=== PATIENT | female | born 1990 | race Caucasian/White ===

== ENCOUNTER 2020-01-11 16:00 | Inpatient (IN) | payer OTHER ==
--- OUTSIDE RECORDS SUMMARY | 2020-01-11 16:50 | XMS ---
:1990 Author Organization [facility] Care Team Providers Name Role Phone MD Dustin Betancur Unavailable Unavailable MD Сергей Jones Unavailable Unavailable Gordon Fontana Unavailable Unavailable Holly Brito MD Unavailable Unavailable Mary Brito MD Unavailable Unavailable Mary Brito MD Unavailable Unavailable Mary Brito MD Unavailable Unavailable Tressa Carlton MD Unavailable Unavailable Tressa Carlton MD Unavailable Unavailable Tressa Carlton MD Unavailable Unavailable Tressa Carlton MD Unavailable Unavailable Tressa Carlton MD Unavailable Unavailable Tressa Carlton MD Unavailable Unavailable Other Unavailable Unavailable MD Fernando Unavailable Unavailable MD Fernando Unavailable Unavailable MD Fernando Unavailable Unavailable MD Fernando Unavailable Unavailable MD Fernando Unavailable Unavailable Re-disclosure Warning The records that you are about to access may contain information from federally- assisted alcohol or drug abuse programs. If such information is present, then the following federally mandated warning applies: This information has been disclosed to you from records protected by federal confidentiality rules (42 CFR part 2). The federal rules prohibit you from making any further disclosure of this information unless further disclosure is expressly permitted by the written consent of the person to whom it pertains or as otherwise permitted by 42 CFR part 2. A general authorization for the release of medical or other information is NOT sufficient for this purpose. The Federal rules restrict any use of the information to criminally investigate or prosecute any alcohol or drug abuse patient.The records that you are about to access may contain highly sensitive health information, the redisclosure of which is protected by Article 27-F of the [place] State Public Health law. If you continue you may haveaccess to information: Regarding HIV / AIDS; Provided by facilities licensed or operated by the [facility] Office of Mental Health; or Provided by the [facility] Office for People With Developmental Disabilities. If such information is present, then the following [facility] mandated warning applies: This information has been disclosed to you from confidential records which are protected by state law. State law prohibits you from making any further disclosure of this information without the specific written consent of the person to whom it pertains, or as otherwise permitted by law. Any unauthorized further disclosure in violation of state law may result in a fine or fdc sentence or both. A general authorization for the release of medical or other information is NOT sufficient authorization for further disclosure. Encounters Encounter Providers Location Date Indications Data Source(s ) Outpatient Attender: Gordon HUMPHREYMATTRJohn 01/11/2020 [facility] Te[facility]ee Figueroa 02:31:00 PM Hospital EDT Outpatient Attender: Doctor DANIELS 01/10/2020 STEVE Figueroa Other 12:18:05 PM Hospital EDT Outpatient Attender: MD Chan ICU-LABCLMisbah 01/03/2020 S - Kofi Figueroa PaliAttender: 12:04:58 PM Hospital Doctor Other EDT Outpatient Attender: MD Dustin HUMPHREYRADCLMisbah 12/20/2019 S - Kofi LazoiAttender: 11:41:03 AM Hospital Doctor Other EDT - 01/03/2020 11:59:00 PM EDT Patient discharged. Outpatient Attender: MD Chan ICUTeeteeOBRG 12/06/2019 11:17:50 S Teetee Gannontender: Doctor AM EDT - 12/20/2019 Hospital Other 11:59:00 PM EDT Patient discharged. Outpatient Attender: MD Dustin HUMPHREYOBRG 11/23/2019 11:10:31 ADDYS Teetee Aldrich: Doctor AM EDT - 12/06/2019 Hospital Other 11:59:00 PM EDT Patient discharged. Outpatient Attender: Gordon HUMPHREYOBRG 11/22/2019 10:51:03 M [facility] Teetee Mendozaender: Doctor AM EDT - 11/23/2019 Hospital Other 11:59:00 PM EDT Patient discharged. Emergency Attender: Carlos ICU-EMERG 11/08/2019 6 MONTHS PREG [facility] - Kofi Fernando MDAttender: 08:06:00 PM EDT - / CHIILS / R ochelle Doctor Other 11/08/2019 FEVER / ABD Hospital 11:04:00 PM EDT PAIN 6 MONTHS PREG / CHIILS / FEVER / ABD BAILEE N Patient discharged. Outpatient Attender: MD Rushing ICU-OBGYN 10/25/2019 S - Kofi HullelliAttender: Doctor 11:29:25 AM EDT - [place] Other 11/22/2019 Hospital 11:59:00 PM EDT Admission cancelled. Disregard status an d admitted date. Emergency Attender: Holly ICU-EMERG 10/21/2019 24 WKS [facility] - Misbah Brito MDAttender: 07:27:00 PM EDT - PREG/UPPER G I [place] Doctor Other 10/21/2019 PAIN Hospital 10:17:00 PM EDT 24 WKS PREG/UPPER GI PAIN Patient discharged. Outpatient Attender: Silke ICU-LABCLN 10/18/2019 02:57:42 [facility] - Kofi Carlton MDAttender: PM EDT - 10/25/2019 Hospital Doctor Other 11:59:00 PM EDT Patient discharged. Outpatient Attender: Silke ICU-LABCLN 09/25/2019 10:11:04 [facility] - Kofi Carlton MDAttender: AM EDT - 10/11/2019 Hospital Doctor Other 11:59:00 PM EDT Patient discharged. Medications Medication Brand Start Product Dose Route Administrative Pharm[facility] Indications Reaction Description Data Name Date Form Instructions Instructions Source(s) Diphenhydra Benadr K81302 active Benad ryl [facility] yl 2019 {cap( Health Hydrochlori mg 11:58: s)} System de 25 MG oral 22 AM Oral capsul EDT Capsule e [Benadryl] Benadryl 25 mg oral capsule Acetaminoph acetam X62822 active Aceta minophe [facility] en 325 MG inophe 2019 {tab( n Health Oral Tablet n 325 10:49: s)} Syste m acetaminoph mg 18 PM en 325 mg oral EDT oral tablet tablet This product contains acetaminophen. Do not use with any other product containing acetaminophen to prevent possible liver damage. [id number] 10/31/2019 1 Q20476 active [place] [facility] 03:31:45 PM {tab(s)} Health with Folic EDT System Acid 0.4 mg oral tablet [id number] 10/29/2019 1 K23273 active [place] [facility] 01:40:36 PM {tab(s)} Health with Folic EDT System Acid 0.4 mg oral tablet Insurance Providers Payer name Policy type / Policy ID Covered Covered Policy Plan Coverage type green party ID green party's Meraz Inform ation relationship to meraz MEDICAID [id number] SP [id number] MVP Medicaid Medicaid [id number] 1 [id number] Workers' Commercial [id number] Compensation Medicaid Medicaid [id number] 1 [id number] Medicaid Sohail Medicaid PCAP 1 PCAP Submitted DSS Emergency Medicaid [id number] Medicaid Self Pay Self Pay 1 Problems, Conditions, and Diagnoses Code Display Name Description Problem Type Effective Data Sour ce(s) Dates O26.613 Liver and biliary Intrahepatic Diagnosis 01/11/2020 [facility] - New tract disorders in cholestasis of 02:31:00 PM R ochelle , third in third EDT Hospital trimester trimester Z34.93 Encounter for Encounter for Diagnosis 01/10/2020 [facility] - Ne w supervision of supervision [facility] 11:44:[facility] H ospital unspecified, third in third trimester trimester Z3A.35 35 weeks gestation 35 weeks gestation Diagnosis 0 [facility] - New of of 12:00:00 AM [facility] Z34.90 Encounter for Diagnosis 01/10/2020 [facility] - New supervision of 12:00:00 AM [place] normal , EDT Hospita l unspecified, unspecified trimester Z3A.34 34 weeks gestation 34 weeks gestation Diagnosis 0 [facility] - New of of 10:50:00 AM [facility] Z3A.32 32 weeks gestation 32 weeks gestation Diagnosis 0 [facility] - New of of 12:00:00 AM [facility] Z3A.30 30 weeks gestation 30 weeks gestation Diagnosis 0 [facility] Z34.82 Encounter for Encounter for Diagnosis 11/23/2019 [facility] - Ne w supervision of supervision of 10:00:00 AM [facility] other normal normal EDT Hospit al , second in multigravida in trimester second trimester Z3A.28 28 weeks gestation 28 weeks gestation Diagnosis 0 [facility] - New of of 10:00:00 AM [place] EDT [facility] K80.20 Calculus of Calculus of Diagnosis 11/08/2019 [facility] - New gallbladder gallbladder 08:06:00 PM [place] without without EDT Hospital cholecystitis cholecystitis without without obstruction obstruction 6 MONTHS PREG / 6 MONTHS PREG / Diagnosis 11/08/2019 [facility] - New CHIILS / FEVER / CHIILS / FEVER / 08:06:00 PM [place] ABD PAIN ABD PAIN EDT Hospital Z33.1 state, Encounter for Diagnosis 10/25/2019 [facility] - New incidental incidental 10:07:00 AM [place] EDT [facility] 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 test without active tuberculosis Z34.92 Encounter for Encounter for Diagnosis 10/23/2019 [facility] - Ne w supervision of supervision [facility] 12:00:00 [facility] normal [facility] unspecified, unspecified, second trimester second trimester Z3A.22 22 weeks gestation 22 weeks gestation Diagnosis 0 [facility] - New [facility] 12:00:[facility] R10.9 Unspecified Abdominal pain Diagnosis 10/21/2019 [facility] - New abdominal pain 07:27:[facility] O26.892 Other specified Other specified Diagnosis 10/21/2019 [facility] - New related related 07:27:00 PM [place] conditions, second conditions in EDT Hos pital trimester second trimester Z03.818 Encounter for Encounter for Diagnosis 10/21/2019 [facility] - Ne w observation for observation for 07:27:00 PM Pola helle suspected exposure suspected exposure EDT Hospital to other to other biological agents biological agent, ruled out ruled out 24 WKS PREG/UPPER 24 WKS PREG/UPPER Diagnosis 10/21/2019 [facility] - New GI PAIN GI PAIN 07:27:00 PM [facility] Z3A.24 24 weeks gestation 24 weeks gestation Diagnosis 0 [facility] - New of of 07:27:00 PM [facility] Surgeries/Procedures Procedure Description Date Indications Data Source(s) US Obstetric Biophysical 01/09/2020 [facility] [employer] Profile US Obstetric 02:19:00 PM System Biophysical Profile EDT - 01/09/2020 02:19:00 PM EDT Bile Acids, Fractionated [facility]03[facility] 12:27:34 PM System EDT - 01/03/2020 12:51:00 PM EDT US Abdomen Limited US Abdomen 11/08/2019 [facility] 09:09:00 PM System EDT - 11/08/2019 09:09:00 PM EDT Electrocardiographic 11/08/2019 [facility] procedure (procedure) 08:19:04 PM System EDT - 11/08/2019 08:40:06 PM EDT Aerobic Culture, Urine 10/30/2019 [facility] 03:30:12 PM System EDT - 10/30/2019 03:38:24 PM EDT XR Chest Single PA view X[facility] Chest Single PA view 03:08:00 PM System EDT - 10/30/2019 03:08:00 PM EDT US OB Transvaginal US OB 10/21/2019 [facility] [employer] Transvaginal 07:55:00 PM System EDT - 10/21/2019 07:55:00 PM EDT Urine Test POCT 10/21/2019 [facility] 07:53:03 PM System EDT - 10/21/2019 08:51:42 PM EDT SMA Carrier Screen [facility] 03:15[facility]45 PM System EDT - 10/12/2019 03:10:00 PM EDT Cystic Fibrosis Screen 10/12/2019 [facility] 03:15:45 PM System EDT - 10/12/2019 03:10:00 PM EDT Lead, Serum Quantitative 10/12/2019 [facility] [employer] 03:15:45 PM System EDT - 10/12/2019 03:10:00 PM EDT US Obstetric Complete US 10/12/2019 [facility] Obstetric Complete 02:22:00 PM System EDT - 10/12/2019 02:22:00 PM EDT Results ID Date Data Source [id number] 01/10/2020 01:33:25 AM EDT [facility] Name Value Range Interpretation Code Description Data Shana rce(s) Supporting Document(s ) Lead.. < 1 Normal (applies to Lead.. [facility] non-numeric results) Health Sy stem ID Date Data Source [id number] 01/10/2020 01:33:25 AM EDT [facility] Name Value Range Interpretation Code Description Data Shana rce(s) Supporting Document(s ) RBC. 4.16 Normal (applies to RBC. [facility] {Mill/mcL} non-numeric Health System results) hemoglobi 12.4 g/dL Normal (applies to hemoglobin. [facility] n. non-numeric [facility] System results) Hematocri 36.4 % Normal (applies to Hematocrit. [facility] t. non-numeric Health System results) MCV. 87.4 fl Normal (applies to MCV. [facility] non-numeric [facility] System results) MCH. 29.9 pg Normal (applies to MCH. [facility] non-numeric [facility] System results) RDW. 13.0 % Normal (applies to RDW. [facility] non-numeric [facility] System results) Test Performed at:[facility] [place], [place] [address]Cornell Middleton M.D. HemoglobinA 96.3 Normal Hemoglobin A [facility] {Percent} (applies to Health non-numeric System results) HemoglobinS 0.0 Normal Hemoglobin S [facility] {Percent} (applies to Health non-numeric System results) HemoglobinC 0.0 Normal Hemoglobin C [facility] {Percent} (applies to Health non-numeric System results) HemoglobinElectrophoresisInterpre SEE Normal Hemogl obin [facility] tation NOTENormal (applies to Electrophoresis Health Pattern non-numeric Interpretation System results) HemoglobinA2 2.7 Normal Hemoglobin A2 [facility] {Percent} (applies to Health non-numeric System results) Hemoglobin F [Mass/volume] in < 1.0 Normal Hemoglobin , [facility] Blood by Electrophoresis (applies to Hea lth non-numeric System results) Hem.Variant 0.0 Normal Hem. Variant [facility] {Percent} (applies to Health non-numeric System results) Test Performed at:[facility] [place], [place] [address]ZarbgyrkCornell Middleton M.D. ID Date Data Source [id number] 01/10/2020 01:33:25 AM EDT [facility] Name Value Range Interpretation Description Data Sup porting Code Source(s) Document(s ) VaricellaResultVa 1.31 Normal (applies Varicella [facility] lue to non-numeric Result Value Health results) System VaricellaInterpre Positive Normal (applies Varicella [facility] tation <0.6 to non-numeric Interpretation Health results) System Negative> =0.6 - <.90 Equivocal >=.90 Positive ID Date Data Source [id number] 01/10/2020 01:33:25 AM EDT [facility] Name Value Range Interpretation Description Data Sup porting Code Source(s) Document(s ) Rubella 15 Normal (applies Rubella [facility] {IU/mL} to non-numeric Health results) System RubellaInterpreta Positive Normal (applies Rubella [facility] tion <5 to non-numeric Interpretation Health Negative> results) System =5 - <10 Equivocal >= 10 Positive ID Date Data Source [id number] 01/10/2020 01:33:25 AM EDT [facility] Name Value Range Interpretation Description Data Sup porting Code Source(s) Document(s ) aPTT in Blood 28.9 Normal (applies Activated [facility] by Coagulation {Seconds to non-numeric Partial Health assay } results) Thromboplastin System Time ID Date Data Source [id number] 01/10/2020 01:33:25 AM EDT [facility] Name Value Range Interpretation Description Data Sup porting Code Source(s) Document(s ) Prothrombintim 11.30 Normal (applies Prothrombin [facility] e(PT) {seconds to non-numeric time (PT) Health System } results) INR in Blood 1.00 Normal (applies INR Result [facility] by Coagulation {Ratio} to non-numeric Health Sys tem assay results) Normal = 0.7-1.1Therapeutic = 2.0-3.0Mec hanical Heart = 3.0-4.5 ID Date Data Source [id number] 01/10/2020 01:33:25 AM EDT Monico miller System Name Value Range Interpretation Description Data Sup porting Code Source(s) Document(s ) Leukocytes 7.6 Normal (applies WBC Count [facility] [#/volume] in {10^3_uL to non-numeric Health Unspecified } results) System specimen by Automated count Erythrocytes 4.16 Below low normal RBC Count [facility] [#/volume] in {10^6_uL Health Blood by } System Automated count Hematocrit 36.7 % Below low normal Hematocrit [facility] [Volume Health Fraction] of System Blood Hemoglobin 12.7 Normal (applies Hemoglobin [facility] [Mass/volume] in {gm/dL} to non-numeric Health Blood results) System Erythrocyte mean 88.2 fl Normal (applies MCV [facility] corpuscular to non-numeric Health volume [Entitic results) System volume] by Automated count Erythrocyte mean 30.5 pg Normal (applies MCH [facility] corpuscular to non-numeric Health hemoglobin results) System [Entitic mass] by Automated count Erythrocyte mean 34.6 Normal (applies MCHC [facility] corpuscular {gm/dL} to non-numeric Health hemoglobin results) System concentration [Mass/volume] by Automated count Erythrocyte 12.1 % Normal (applies RDW-CV [facility] distribution to non-numeric Health width [Entitic results) System volume] by Automated count Platelets 240 Normal (applies Platelet Count [facility] [#/volume] in {10^3_uL to non-numeric Health Plasma by } results) System Automated count Nucleated 0.0 Normal (applies NRBC % [facility] erythrocytes {/100_WB to non-numeric Health [#/volume] in C} results) System Body fluid Platelet mean 9.8 fl Normal (applies MPV [facility] volume [Entitic to non-numeric Health volume] in Blood results) System by Automated count Neutrophils/100 66.0 % Normal (applies Neutrophil % Thom alissa leukocytes in to non-numeric Health Blood by results) System Automated count NRBC# 0.00 Normal (applies NRBC # [facility] {10^3_uL to non-numeric Health } results) System Lymphocytes 26.6 % Normal (applies Lymphocyte % [facility] [#/volume] in to non-numeric Health Blood by results) System Automated count Neutrophils 5.1 Normal (applies Neutrophil # [facility] [#/volume] in {10^3_uL to non-numeric Health Body fluid } results) System Monocytes/100 6.0 % Normal (applies Monocyte % [facility] leukocytes in to non-numeric Health Blood results) System Lymphocyte 2.0 Normal (applies Lymphocyte # [facility] percent {10^3_uL to non-numeric Health differential } results) System count (procedure) Eosinophils/100 0.7 % Normal (applies Eosinophil % Thom alissa leukocytes in to non-numeric Health Unspecified results) System specimen Monocytes 0.5 Normal (applies Monocyte # [facility] [#/volume] in {10^3_uL to non-numeric Health Blood by Manual } results) System count Eosinophils 0.05 Normal (applies Eosinophil # [facility] [#/volume] in {10^3_uL to non-numeric Health Blood } results) System Basophils/100 0.4 % Normal (applies Basophil % [facility] leukocytes in to non-numeric Health Unspecified results) System specimen by Manual count Basophils 0.03 Normal (applies Basophil # [facility] [#/volume] in {10^3_uL to non-numeric Health Blood by } results) System Automated count ImmatureGranuloc 0.02 Normal (applies Immature [facility] ytes# {10^3_uL to non-numeric Granulocytes # Health } results) System ImmatureGranuloc 0.3 % Normal (applies Immature [facility] ytes% to non-numeric Granulocytes % Health results) System ID Date Data Source [id number] 01/10/2020 01:33:25 AM EDT [facility] Dmitri miller System Name Value Range Interpretation Description Data Sup porting Code Source(s) Document(s ) Human NONREACTIVE Normal (applies HIV test, [facility] immunodeficien Normal Range: to non-numeric Routine Health cy virus Non results) (antigen and System antibody titer ReactiveNegativ antibody measurement e for HIV-1 testing) (procedure) antigen and HIV-1/HIV-2 antibodies. No laboratory evidence of HIV infection.Test was performed at [address] ID Date Data Source [id number] 01/10/2020 01:33:25 AM EDT [facility] Name Value Range Interpretation Description Data Sup porting Code Source(s) Document(s ) HepatitisBSurf Non Normal (applies Hepatitis B [facility] aceAntigen. ReactiveReferen to non-numeric [facility] ce Range: Non results) Antigen. System Reactive HepatitisBSurf DNRTest Normal (applies Hepatitis B [facility] aceAntigenNeut Performed to non-numeric [facility] at:[facility] results) Antigen Neut [facility], [address] Middleton M.D. ID Date Data Source [id number] 01/10/2020 01:33:25 AM EDT [facility] Name Value Range Interpretation Description Data Sup porting Code Source(s) Document(s ) TechnicalResul see Normal (applies Technical [facility] ts noteNEGATIVE; to non-numeric Results Health AT LEAST TWO results) System COPIES OF THE SMN1 GENE DETECTED SMN1 2 copies Normal (applies SMN1 [facility] to non-numeric Health results) System SMN2 1 copy Normal (applies SMN2 [facility] to non-numeric Health results) System Interpretation SEE TEXT see Normal (applies Interpretati [facility] . noteThis to non-numeric on. Health analysis results) System identified at least two (2) copies of theSMN1 gene. This result does not rule out carrierstatus or a diagnosis of spinal muscular atrophy (SMA)*This testing cannot differentiate between individualswho have all copies of the SMN1 gene on one chromosomeand NONE on the opposite chromosome as well as othermutations in the SMN1 gene. The risk for mutationsthat cause SMA other than the deletions tested dependsgreatly on family history and clinical presentation.__ ! ! !Risk to be a carrier-------- --!---------!-- !---- ------!-------- --Ethnicity !Detection! Prior !2SMN1 copy!3SMN1 copy! rate !carrier risk! result ! result--------- -!---------!--- ---------!----- -----!--------- - ! 95% ! 1 in 35 ! 1 in 632 ! 1 in 3500 ! ---------!----- -------!------- ---! A shkenazi ! 90% ! 1 in 41 ! 1 in 350 ! 1 in 4000Jewish ! ! ! ! !--- ------!-------- ----! ! Rosie n ! 93% ! 1 in 53 ! 1 in 628 ! 1 in 5000 ! ---------!----- -------!------- ---! A frican ! 71% ! 1 in 66 ! 1 in 121 ! 1 in 3000American ! ! ! ! !--- ------!-------- ----! ! Jacky anic ! 91% ! 1 in 117 ! 1 in 1061!1 in 10493 !---------!---- --------!------ ----! Reviewer. SEE TEXT see Normal (applies Reviewer. Monico Thomson. to non-numeric Health Angelic results) System Maximino, Ph.D., FACMGDirector, Molecular GeneticsSpinal muscular atrophy (SMA) is a family of disordersthat are characterized by progressive muscularweaknes s due to loss of anterior horn cells. Adeletion of exon 7 in the SMN1 gene causes 95% of SMA.New mutations account for approximately 2% of SMA.SMN2 genes are able to produce a protein identical tothat of the SMN1 gene, but at a reduced (10-20%)capacit y. As a result the number of copies of WEI6siq been shown to influence the severity of thedisease. This assay detects the copy number of thetwo common genes (SMN1 and SMN2) recommended by theLincoln Hospitalan College of Medical Genetics (ACMG) forpopulation-b ased SMA carrier screening.Healt care providers, please contact your localI[facility]frontdesk genetic counselor or [place] ([phone]) for assistance withinterpretat ion of these results.The copy number of the SMA genes (SMN1 and SMN2) isdetected by quantitative PCR. Although rare, falsepositive or false negative results may occur. Allresults should be interpreted in context of clinicalfinding s, relevant history, and other laboratory data.This test was developed and its analyticalperfo rmance characteristics have been determinedby [facility] [place], [place].It has not been cleared or approved by the FDA. Thisassay has been validated pursuant to the CLIAregulations and is used for clinical purposes.This test was performed at:[facility] [place], [place] [address]Vgwr Performed at:[facility], [id number] [place] [address]Rfzivkfsuleiman Meneses M.D., Ph.D. ID Date Data Source [id number] 01/10/2020 01:33:25 AM EDT Monico miller System Name Value Range Interpretation Description Data Sup porting Code Source(s) Document(s ) Glucose 89 mg/dL Normal (applies to Glucose, Serum [facility] [Mass/volum non-numeric Health System e] in Serum results) or Plasma ID Date Data Source [id number] 01/10/2020 01:33:25 AM EDT [facility] Name Value Range Interpretation Description Data Source(s ) Supporting Code Document(s ) Reagin Ab Non-react Normal (applies to RPR. [facility] non-numeric Health System in Serum by results) RPR ID Date Data Source [id number] 01/10/2020 01:33:25 AM EDT [facility] Name Value Range Interpretation Description Data Sup porting Code Source(s) Document(s ) N.Gono Not Normal (applies N. Gonorrhea [facility] rrheab DetectedReference to non-numeric by [facility] yLCR Range: Not results) System DetectedThis test was performed using the APTIMA COMBO2(R) Assay(GENTrue FitPROBE(R)) .Test Performed at:[facility], [place], [place] [address]Charisma Benoit.Trac Not Normal (applies C. [facility] homati DetectedReference to non-numeric [facility] sAmp Range: Not Detected results) Amp System ID Date Data Source [id number] 01/10/2020 01:33:25 AM EDT [facility] Name Value Range Interpretation Description Data Sup porting Code Source(s) Document(s ) Color Yellow Normal (applies Color [facility] to non-numeric Health results) System Specific gravity 1.024 Normal (applies Urine Specific [facility] of Urine to non-numeric [place] [facility] results) System Appearance of HAZY Normal (applies Urine [facility] Urine to non-numeric Appearance Health results) System pH.. 5.0 Normal (applies pH.. [facility] {pH_unit to non-numeric Health s} results) System Glucose,UA NEG Normal (applies Glucose, UA [facility] to non-numeric Health results) System Protein NEG Normal (applies Protein [facility] [Mass/volume] in to non-numeric Health Serum or Plasma results) System BilirubinUrine NEG Normal (applies Bilirubin [facility] to non-numeric Urine Health results) System Urobilinogen < 2.0 Normal (applies Urobilinogen [facility] [Mass/volume] in to non-numeric UA Health Urine results) System Reference Range: Negative or <=2.0 Ketones NEG Normal (applies Ketones UA [facility] [Mass/volume] in to non-numeric Health S ystem Urine results) Nitrate+Nitrite Negative Normal (applies Nitrite [facility] [Mass/volume] in to non-numeric Health S ystem Unspecified results) specimen Leukocyte esterase Small Abnormal (applies Leukocyte Est erase [facility] [Units/volume] in to non-numeric Concentration [facility] Urine results) Leukocytes 11 {/HPF} Normal (applies White Blood Cells Thom alissa [#/volume] in to non-numeric Health Syst em Unspecified results) specimen by Automated count RedBloodCells 1 {/HPF} Normal (applies Red Blood Cells [facility] to non-numeric Health System results) Epithelial cells 6 {/HPF} Normal (applies Epithelial Cells [facility] [Presence] in to non-numeric Health Syst em Unspecified results) specimen by Wet preparation Mucus RARE Normal (applies Mucus [facility] to non-numeric Health System results) Bacteria [Presence] MOD Normal (applies Bacteria [facility] in Unspecified to non-numeric Health Sys tem specimen results) UrineBlood NEG Normal (applies Urine Blood [facility] to non-numeric Health System results) ID Date Data Source [id number] 01/10/2020 01:33:25 AM EDT [facility] Name Value Range Interpretation Description Data Sup porting Code Source(s) Document(s ) Deprecated Micro Normal (applies Aerobic [facility] Bacteria Result to non-numeric Culture, Urine Health identified in Final results) System Urine by Culture Aerobe Reading culture Note::< 10,000 CFU/ML ID Date Data Source [id number] 01/10/2020 01:33:25 AM EDT [facility] Name Value Range Interpretation Description Data Sup porting Code Source(s) Document(s ) SOURCE.. CERVIX Normal (applies SOURCE.. [facility] to non-numeric Health results) System LMP.. 02/22/17 Normal (applies LMP.. [facility] to non-numeric Health results) System CLINICALINFO Normal (applies CLINICAL [facility] RMATION. to non-numeric INFORMATION. Health results) System ReportStatus FINAL Normal (applies Report Status [facility] to non-numeric Health results) System PRE.PAP NA Normal (applies PRE.PAP [facility] to non-numeric Health results) System PREV.BX NA Normal (applies PREV.BX [facility] to non-numeric Health results) System GENERALCATEG DNR Normal (applies GENERAL [facility] ORIZATION to non-numeric CATEGORIZATION Health results) System STATEMENTOFA SEE Normal (applies STATEMENT OF [facility] DEQUACY NOTESatisfac to non-numeric ADEQUACY Health tory for results) System evaluation.E ndocervical/ transformati on zone componentpre sent.Age and/or menstrual status not provided INTERPRETATI SEE Normal (applies INTERPRETATION/RE [facility] ON/RESULT1 NOTENegative to non-numeric SULT 1 Health for results) System intraepithel ial lesion or malignancy. INTERPRETATI DNR Normal (applies INTERPRETATION/RE [facility] ON/RESULT2 to non-numeric SULT 2 Health results) System COMMENTCYTO DNR Normal (applies COMMENT CYTO [facility] to non-numeric Health results) System CYTOTECHNOLO SEE NOTESMS, Normal (applies STEAMTABLE WORKER M [facility] GIST CT(ASCP)CT to non-numeric Health screening results) System location: [place] [address] REVIEWCYTOTE DNR Normal (applies REVIEW [facility] CHNOLOGIST to non-numeric STEAMTABLE WORKER Health results) System PATHOLOGIST. DNR Normal (applies PATHOLOGIST. [facility] to non-numeric Health results) System ID Date Data Source [id number] 01/10/2020 01:33:25 AM EDT [facility] Name Value Range Interpretation Description Data Source(s ) Supporting Code Document(s ) SOURCE.. CERVIX Normal (applies to SOURCE.. [facility] non-numeric Health System results) LMP.. 02/22/17 Normal (applies to LMP.. [facility] non-numeric Health System results) PRE.PAP NA Normal (applies to PRE.PAP [facility] non-numeric Health System results) CLINICAL Normal (applies to CLINICAL [facility] INFORMAT non-numeric INFORMATION. Health System ION. results) PREV.BX NA Normal (applies to PREV.BX [facility] non-numeric Health System results) ID Date Data Source [id number] 01/10/2020 01:33:25 AM EDT [facility] Name Value Range Interpretation Description Data Sup porting Code Source(s) Document(s ) Interpretation-MAT SEE Normal (applies Interpretati [facility] 4 NOTEScreen to non-numeric on- MAT4 Health negative results) System for open NTD, Down syndrome and Trisomy 18. ONTDRisk < 1:5000 Normal (applies ONTD Risk [facility] to non-numeric Health results) System DownRiskAge 1:865 Normal (applies Down Risk [facility] to non-numeric Age Health results) System DownRisk 1:2000 Normal (applies Down Risk [facility] to non-numeric Health results) System Vzzymgj17Dtxi 1:2741 Normal (applies Trisomy 18 [facility] to non-numeric Risk Health results) System Jrirr-8-Qbuzqwxxvo 35.00 ng/mL Normal (applies Alpha [facility] n [Moles/volume] to non-numeric Fetoprotein, Healt h in Serum or Plasma results) Serum System AlphaFetoproteinMo DNR Normal (applies Alpha Thom alissa M to non-numeric Fetoprotein Health results) MoM System AFPMoM,1Fetus 0.72 Normal (applies AFP MoM, 1 [facility] to non-numeric Fetus Health results) System AFPMoM,1Fetus/Diab DNR Normal (applies AFP MoM, 1 [facility] etic to non-numeric Fetus/Diabet Health results) ic System AFPMoM,2Fetuses DNR Normal (applies AFP MoM, 2 [facility] to non-numeric Fetuses Health results) System AFPMoM,3Fetuses DNR Normal (applies AFP MoM, 3 [facility] to non-numeric Fetuses Health results) System AFPMoM,2Fetus/Diab DNR Normal (applies AFP MoM, 2 [facility] etic to non-numeric Fetus/Diabet Health results) ic System AFPMoM,3Fetus/Diab DNR Normal (applies AFP MoM, 3 [facility] etic to non-numeric Fetus/Diabet Health results) ic System hCG... 18.30 Normal (applies hCG... [facility] {IU/mL} to non-numeric Health results) System hCGMom 0.78 Normal (applies hCG Mom [facility] to non-numeric Health results) System GestationalAge 18.7 Normal (applies Gestational [facility] {Weeks} to non-numeric Age Health results) System uE3MoM 0.55 Normal (applies uE3 MoM [facility] to non-numeric Health results) System InhibinAMom 0.87 Normal (applies Inhibin A [facility] to non-numeric Mom Health results) System Performance of maternal serum AFP, hCG, estriol, and dimeric Inhibin A provides a useful screening test for detection of o pen neural tube defects and some chromosomal abnormalities. It should be noted that n ormal results never guarantee the of a normal baby and that 2 to 3 percent of n ewborns have some type of physical or mental defect, many of which are undetectable t hrough any known diagnostic technique. Comment-MAT4 SEE NOTEPerformance of Normal Comment- MAT4 [facility] maternal serum AFP, hCG, (applies to [facility] System estriol, and dimeric non-numeric Inhibin A provides a useful results) screening test for detection of open neural tube defects and some chromosomal abnormalities. It should be noted that normal results can never guarantee the of a normal baby and that 2 to 3 percent of newborns havesome type of physical or mental defect, many of which are undetectable through any known diagnostic technique. DatingMeth Last Menstrual Period Normal Dating Meth Thom alissa (applies to Health System non-numeric results) Race Normal Race [facility] (applies to Health System non-numeric results) Weight. 138 {lbs} Normal Weight. [facility] (applies to Health System non-numeric results) Diabetic No Normal Diabetic [facility] (applies to Health System non-numeric results) InhibinA 143 pg/mL Normal Inhibin A [facility] (applies to Health System non-numeric results) González 11/30/2017 Normal González [facility] (applies to Health System non-numeric results) RepeatForNtd No Normal Repeat For Ntd [facility] (applies to Health System non-numeric results) Fetuses 1 Normal Fetuses [facility] (applies to Health System non-numeric results) NtdFamHis No Normal Ntd Fam His [facility] (applies to Health System non-numeric results) uE3 0.85 ng/mL Normal uE3 [facility] (applies to Health System non-numeric results) Mat. 1989 This is a Normal Mat. [facility] screening test, not a (applies to Health System diagnostic test. Noreagent non-numeric system establishing the results) risk of chromosomeabnormalities during has been approved by theFDA. This risk assessment report is based in part ondemographic data provided by the ordering physician.It has been observed that patients who smoke cigarettesduring may have a slightly increased risk ofhaving a false positive SHIRIN screen for Down syndrome ortrisomy 18. Please notify the laboratory promptly if anydata are incorrect. For assistance with recalculations,please call your local [facility] laboratory. Forassistance with interpretation of these results, pleasecontact your local [facility] genetic counseloror call [phone]).Th is is a screening test, not a diagnostic. No reagent system establishing the risk of chromosome abnormalities during has been approved by the FDA. This risk assessment report is based in part on demographic data provided by the ordering physician. Please notify the laboratory promptly if any data is incorrect. For assistance with recalcualtions, please call . For assistance with interpretation of these results, please contact our genetic counselor at [phone] or call [phone]. Requisition DNR Normal Requisition [facility] (applies to Health System non-numeric results) ID Date Data Source [id number] 01/10/2020 01:33:25 AM EDT [facility] System Name Value Range Interpretation Description Data Sup porting Code Source(s) Document(s ) Quanti PositiveIn healthy Abnormal Quantiferon-T [facility] feron- persons who have a (applies to [employer] TBGold low likelihood both non-numeric System . ofM. tuberculosis results) infection and of progression to activetuberculosis if infected, a single positive QFT resultshould not be taken as reliable evidence of M. tuberculosisinfectio n. Repeat testing, with either the initial test ora different test, may be considered on a qeql-nw-znrl basis. NIL 0.12 {IU/mL} Normal (applies NIL [facility] to non-numeric Health results) System TBAG-N > 10.00 Normal (applies TB AG-NIL [facility] [place] to non-numeric Health results) System Mitoge > 10.00 Normal (applies Mitogen-NIL [facility] n-NIL to non-numeric Health results) System The Nil tube value is used to determine if the patient has apreexisting immune response which could cause a false-posit parish reading on the test.In order for a test to be valid, the Nil tube must have aval ue of <=8.0 IU/mL.The mitogen control tube is used to assure the patient hasa healthy immune status and also serves as a control forcorrect blood handling and incubation . It is used to detectfalse-negative readings. The mitogen tube must have a g ammainterferon value >=0.5 IU/mL higher than the value of the Niltube.The TB Antigen tube is coated with the M. tuberculosisspecific antigens. For a te st to be considered positive,the TB antigen tube value minus the Nil tube value must be>=0.35 IU/mL.For additional information, please refer [email or web address].[employer]pp[employer]ino/faq/QFT(This link is being provided for informational/educationalpu rposes only.)Test Performed at:[facility], [place], [place] [address]Zqjfnawvdavid Middleton M.D. ID Date Data Source [id number] 01/10/2020 01:33:25 AM EDT [facility] Name Value Range Interpretation Description Data Source(s ) Supporting Code Document(s ) 1HrGlucos 96 {gm/dL} Normal (applies to 1 Hr Glucose [facility] e non-numeric Health System results) Normal <130Borderline 130-140A bnormal >140 ID Date Data Source [id number] 01/10/2020 01:33:25 AM EDT [facility] Name Value Range Interpretation Description Data Sup porting Code Source(s) Document(s ) Leukocytes 8.4 Normal (applies WBC Count [facility] [#/volume] in {10^3_uL to non-numeric Health Unspecified } results) System specimen by Automated count Hemoglobin 11.9 Below low normal Hemoglobin [facility] [Mass/volume] in {gm/dL} Health Blood System Erythrocytes 3.83 Below low normal RBC Count [facility] [#/volume] in {10^6_uL Health Blood by } System Automated count Hematocrit 34.8 % Below low normal Hematocrit [facility] [Volume Health Fraction] of System Blood Erythrocyte mean 90.9 fl Normal (applies MCV [facility] corpuscular to non-numeric Health volume [Entitic results) System volume] by Automated count Erythrocyte mean 31.1 pg Above high MCH [facility] corpuscular normal Health hemoglobin System [Entitic mass] by Automated count Erythrocyte mean 34.2 Normal (applies MCHC [facility] corpuscular {gm/dL} to non-numeric Health hemoglobin results) System concentration [Mass/volume] by Automated count Erythrocyte 12.7 % Normal (applies RDW-CV [facility] distribution to non-numeric Health width [Entitic results) System volume] by Automated count Platelets 256 Normal (applies Platelet Count [facility] [#/volume] in {10^3_uL to non-numeric Health Plasma by } results) System Automated count Nucleated 0.0 Normal (applies NRBC % [facility] erythrocytes {/100_WB to non-numeric Health [#/volume] in C} results) System Body fluid Platelet mean 9.7 fl Normal (applies MPV [facility] volume [Entitic to non-numeric Health volume] in Blood results) System by Automated count Neutrophils/100 66.1 % Normal (applies Neutrophil % Thom alissa leukocytes in to non-numeric Health Blood by results) System Automated count NRBC# 0.00 Normal (applies NRBC # [facility] {10^3_uL to non-numeric Health } results) System Neutrophils 5.6 Normal (applies Neutrophil # [facility] [#/volume] in {10^3_uL to non-numeric Health Body fluid } results) System Lymphocyte 1.9 Normal (applies Lymphocyte # [facility] percent {10^3_uL to non-numeric Health differential } results) System count (procedure) Lymphocytes 22.5 % Normal (applies Lymphocyte % [facility] [#/volume] in to non-numeric Health Blood by results) System Automated count Monocytes/100 9.5 % Above high Monocyte % [facility] leukocytes in normal Health Blood System Monocytes 0.8 Normal (applies Monocyte # [facility] [#/volume] in {10^3_uL to non-numeric Health Blood by Manual } results) System count Eosinophils/100 1.0 % Normal (applies Eosinophil % Thom alissa leukocytes in to non-numeric Health Unspecified results) System specimen Eosinophils 0.08 Normal (applies Eosinophil # [facility] [#/volume] in {10^3_uL to non-numeric Health Blood } results) System Basophils/100 0.2 % Normal (applies Basophil % [facility] leukocytes in to non-numeric Health Unspecified results) System specimen by Manual count Basophils 0.02 Normal (applies Basophil # [facility] [#/volume] in {10^3_uL to non-numeric Health Blood by } results) System Automated count ImmatureGranuloc 0.06 Normal (applies Immature [facility] ytes# {10^3_uL to non-numeric Granulocytes # Health } results) System ImmatureGranuloc 0.7 % Normal (applies Immature [facility] ytes% to non-numeric Granulocytes % Health results) System ID Date Data Source [id number] 01/10/2020 01:33:25 AM EDT [facility] alth System Name Value Range Interpretation Description Data Sup porting Code Source(s) Document(s ) Human NONREACTIVE Normal (applies HIV test, [facility] immunodeficien Normal Range: to non-numeric Routine Health cy virus Non results) (antigen and System antibody titer ReactiveNegativ antibody measurement e for HIV-1 testing) (procedure) antigen and HIV-1/HIV-2 antibodies. No laboratory evidence of HIV infection.Test was performed at [address] ID Date Data Source [id number] 01/10/2020 01:33:25 AM EDT [facility] alth System Name Value Range Interpretation Description Data Source(s ) Supporting Code Document(s ) Reagin Ab Non-react Normal (applies to RPR. [facility] [Presence] parish non-numeric Health System in Serum by results) RPR ID Date Data Source [id number] 01/10/2020 01:33:25 AM EDT [facility] al[facility] System Name Value Range Interpretation Description Data Sup porting Code Source(s) Document(s ) C.Trac Not Normal (applies C. [facility] homati DetectedReference to non-numeric [facility]alt [facility] sAmp Range: Not Detected results) Amp System N.Gono Not Normal (applies N. Gonorrhea [facility] rrheab DetectedReference to non-numeric by LCR Health yLCR Range: Not results) System DetectedThis test was performed using the APTIMA COMBO2(R) Assay(GEN-PROBE(R)) .Test Performed at:[facility], [place] [id number] Middleton M.D. ID Date Data Source [id number] 01/10/2020 01:33:25 AM EDT [facility] al[facility] System Name Value Range Interpretation Description Data Sup porting Code Source(s) Document(s ) Streptococcus Micro Result Normal (applies Culture [facility] agalactiae Final to non-numeric Screen, Strep Health [Presence] in Culture results) Group B System Cervix by Reading Organism Note::NEGATI specific VE FOR BETA culture HEMOLYTIC STREPTOCCI GROUP B ID Date Data Source [id number] 01/10/2020 01:33:25 AM EDT [facility] Name Value Range Interpretation Description Data Sup porting Code Source(s) Document(s ) pH 7.360 Normal (applies pH [facility] {pH_unit to non-numeric Health System s} results) Carbon dioxide 41.4 Normal (applies pCO2, Arterial [facility] [Partial {mm_Hg} to non-numeric Health System pressure] in results) Arterial blood Bicarbonate 22.8 Normal (applies HCO3 [facility] [Moles/volume] mmol/L to non-numeric Health Sys tem in Venous results) blood BaseExcess. -1.9 Normal (applies Base Excess. [facility] mmol/L to non-numeric Health System results) ID Date Data Source [id number] 01/10/2020 01:33:25 AM EDT [facility] System Name Value Range Interpretation Description Data Sup porting Code Source(s) Document(s ) pH 7.305 Below low normal pH [facility] {pH_unit Health System s} Carbon dioxide 51.1 Above high normal pCO2, Arterial [facility] [Partial {mm_Hg} Health System pressure] in Arterial blood Bicarbonate 24.7 Normal (applies HCO3 [facility] [Moles/volume] mmol/L to non-numeric Health Sys tem in Venous results) blood BaseExcess. -0.8 Normal (applies Base Excess. [facility] mmol/L to non-numeric Health System results) ID Date Data Source [id number] 01/10/2020 01:33:25 AM EDT [facility] System Name Value Range Interpretation Description Data Sup porting Code Source(s) Document(s ) Type O Normal (applies Type [facility] to non-numeric Health results) System AntibodyScreen Negative Normal (applies Antibody [facility] to non-numeric Screen Health results) System D Ab [Titer] in Positive Normal (applies Rh [facility] Serum or Plasma to non-numeric Health results) System ID Date Data Source [id number] 01/10/2020 01:33:25 AM EDT [facility] System Name Value Range Interpretation Description Data Sup porting Code Source(s) Document(s ) Color Yellow Normal (applies Color [facility] to non-numeric Health results) System Appearance of HAZY Normal (applies Urine [facility] Urine to non-numeric Appearance Health results) System Specific gravity 1.009 Normal (applies Urine Specific [facility] of Urine to non-numeric [place] [facility] results) System pH.. 7.0 Normal (applies pH.. [facility] {pH_unit to non-numeric Health s} results) System Glucose,UA NEG Normal (applies Glucose, UA [facility] to non-numeric Health results) System BilirubinUrine NEG Normal (applies Bilirubin [facility] to non-numeric Urine Health results) System Protein NEG Normal (applies Protein [facility] [Mass/volume] in to non-numeric Health Serum or Plasma results) System Urobilinogen < 2.0 Normal (applies Urobilinogen [facility] [Mass/volume] in to non-numeric UA Health Urine results) System Reference Range: Negative or <=2.0 Ketones NEG Normal (applies Ketones UA [facility] [Mass/volume] in to non-numeric Health S ystem Urine results) Nitrate+Nitrite Negative Normal (applies Nitrite [facility] [Mass/volume] in to non-numeric Health S ystem Unspecified results) specimen Leukocytes 20 {/HPF} Normal (applies White Blood Cells Thom alissa [#/volume] in to non-numeric Health Syst em Unspecified results) specimen by Automated count Leukocyte esterase Moderate Abnormal (applies Leukocyte Est erase [facility] [Units/volume] in to non-numeric Concentration Hea lth System Urine results) RedBloodCells 1 {/HPF} Normal (applies Red Blood Cells [facility] to non-numeric Health System results) Epithelial cells 5 {/HPF} Normal (applies Epithelial Cells [facility] [Presence] in to non-numeric Health Syst em Unspecified results) specimen by Wet preparation Bacteria [Presence] FEW Normal (applies Bacteria [facility] in Unspecified to non-numeric Health Sys tem specimen results) UrineBlood NEG Normal (applies Urine Blood [facility] to non-numeric Health System results) ID Date Data Source [id number] 01/10/2020 01:33:25 AM EDT [facility] System Name Value Range Interpretation Description Data Sup porting Code Source(s) Document(s ) aPTT in Blood 27.9 Normal (applies Activated [facility] by Coagulation {Seconds to non-numeric Partial Health assay } results) Thromboplastin System Time ID Date Data Source [id number] 01/10/2020 01:33:25 AM EDT [facility] System Name Value Range Interpretation Description Data Sup porting Code Source(s) Document(s ) Prothrombintim 10.20 Normal (applies Prothrombin [facility] e(PT) {seconds to non-numeric time (PT) Health System } results) INR in Blood 0.89 Normal (applies INR Result [facility] by Coagulation {Ratio} to non-numeric Health Sys tem assay results) Normal = 0.7-1.1Therapeutic = 2.0-3.0Mec hanical Heart = 3.0-4.5 ID Date Data Source [id number] 01/10/2020 01:33:25 AM EDT [facility] System Name Value Range Interpretation Description Data Sup porting Code Source(s) Document(s ) Leukocytes 9.1 Normal (applies WBC Count [facility] [#/volume] in {10^3_uL to non-numeric Health Unspecified } results) System specimen by Automated count Erythrocytes 4.13 Below low normal RBC Count [facility] [#/volume] in {10^6_uL Health Blood by } System Automated count Hemoglobin 12.8 Normal (applies Hemoglobin [facility] [Mass/volume] in {gm/dL} to non-numeric Health Blood results) System Hematocrit 38.4 % Normal (applies Hematocrit [facility] [Volume to non-numeric Health Fraction] of results) System Blood Erythrocyte mean 93.0 fl Normal (applies MCV [facility] corpuscular to non-numeric Health volume [Entitic results) System volume] by Automated count Erythrocyte mean 31.0 pg Normal (applies MCH [facility] ore corpuscular to non-numeric Health hemoglobin results) System [Entitic mass] by Automated count Erythrocyte mean 33.3 Normal (applies MCHC [facility] corpuscular {gm/dL} to non-numeric Health hemoglobin results) System concentration [Mass/volume] by Automated count Erythrocyte 13.2 % Normal (applies RDW-CV [facility] distribution to non-numeric Health width [Entitic results) System volume] by Automated count Platelets 254 Normal (applies Platelet Count [facility] [#/volume] in {10^3_uL to non-numeric Health Plasma by } results) System Automated count Platelet mean 10.7 fl Normal (applies MPV [facility] volume [Entitic to non-numeric Health volume] in Blood results) System by Automated count Nucleated 0.0 Normal (applies NRBC % [facility] erythrocytes {/100_WB to non-numeric Health [#/volume] in C} results) System Body fluid NRBC# 0.00 Normal (applies NRBC # [facility] {10^3_uL to non-numeric Health } results) System Neutrophils/100 59.0 % Normal (applies Neutrophil % [facility] al[facility] leukocytes in to non-numeric Health Blood by results) System Automated count Neutrophils 5.4 Normal (applies Neutrophil # [facility] [#/volume] in {10^3_uL to non-numeric Health Body fluid } results) System Lymphocytes 30.5 % Normal (applies Lymphocyte % [facility] [#/volume] in to non-numeric Health Blood by results) System Automated count Lymphocyte 2.8 Normal (applies Lymphocyte # [facility] percent {10^3_uL to non-numeric Health differential } results) System count (procedure) Monocytes/100 8.7 % Normal (applies Monocyte % [facility] leukocytes in to non-numeric Health Blood results) System Monocytes 0.8 Normal (applies Monocyte # [facility] [#/volume] in {10^3_uL to non-numeric Health Blood by Manual } results) System count Eosinophils/100 0.9 % Normal (applies Eosinophil % [facility] leukocytes in to non-numeric Health Unspecified results) System specimen Eosinophils 0.08 Normal (applies Eosinophil # [facility] [#/volume] in {10^3_uL to non-numeric Health Blood } results) System Basophils/100 0.6 % Normal (applies Basophil % [facility] leukocytes in to non-numeric Health Unspecified results) System specimen by Manual count Basophils 0.05 Normal (applies Basophil # [facility] [#/volume] in {10^3_uL to non-numeric Health Blood by } results) System Automated count ImmatureGranuloc 0.03 Normal (applies Immature [facility] ytes# {10^3_uL to non-numeric Granulocytes # Health } results) System ImmatureGranuloc 0.3 % Normal (applies Immature [facility] ytes% to non-numeric Granulocytes % Health results) System ID Date Data Source [id number] 01/10/2020 01:33:25 AM EDT Monico miller System Name Value Range Interpretation Description Data Sup porting Code Source(s) Document(s ) Sodium 137 Normal (applies Sodium, Serum [facility] [Moles/volume] in mmol/L to non-numeric Health Serum or Plasma results) System Potassium 4.1 Normal (applies Potassium, [facility] [Mass/volume] in mmol/L to non-numeric Serum Health Serum or Plasma results) System Chloride 103 Normal (applies Chloride, [facility] [Moles/volume] in mmol/L to non-numeric Serum Health Serum or Plasma results) System Carbon dioxide, 21.7 Normal (applies CO2, Serum [facility] total mmol/L to non-numeric Health [Moles/volume] in results) System Serum or Plasma TotalProtein 6.5 Normal (applies Total Protein [facility] mg/dl to non-numeric Health results) System Glucose 71 Normal (applies Glucose, [facility] [Mass/volume] in mg/dL to non-numeric Serum Health Serum or Plasma results) System Urea nitrogen 10 Normal (applies Blood Urea [facility] [Mass/volume] in mg/dl to non-numeric Nitrogen, Health Serum or Plasma results) Serum System Creatinine 0.63 Normal (applies Creatinine, [facility] [Mass/volume] in mg/dl to non-numeric Serum Health Serum or Plasma results) System Alkaline 325 Above high Alkaline [facility] phosphatase {IU/L} normal Phosphatase, Health isoenzymes Serum System [Enzymatic activity/volume] in Serum or Plasma by Heat stability Bilirubin.total 0.4 Normal (applies Bilirubin, [facility] [Mass/volume] in mg/dl to non-numeric Serum Total Health Serum or Plasma results) System DirectBilirubin 0.0 Normal (applies Direct [facility] mg/dl to non-numeric Bilirubin Health results) System Aspartate 34 Normal (applies Aspartate [facility] aminotransferase {IU/L} to non-numeric Transaminase, Heal th [Enzymatic results) Serum System activity/volume] in Serum or Plasma by With P-5'-P Albumin 3.5 Normal (applies Albumin, [facility] [Mass/volume] in {gm/dl} to non-numeric Serum Health Serum or Plasma results) System I.Phosphorus 4.3 Normal (applies I. Phosphorus [facility] mg/dl to non-numeric Health results) System Alanine 30 Normal (applies Alanine [facility] aminotransferase {IU/L} to non-numeric Aminotransfer Heal th [Enzymatic results) ase, Serum System activity/volume] in Serum or Plasma Calcium 8.9 Normal (applies Calcium, [facility] [Mass/volume] in mg/dl to non-numeric Total Serum Health Serum or Plasma results) System A/GRatio 1.17 Normal (applies A/G Ratio [facility] to non-numeric Health results) System Urate 5.3 Normal (applies Uric Acid, [facility] [Mass/volume] in mg/dl to non-numeric Serum Health Serum or Plasma results) System Anion gap in Serum 12.30 Normal (applies Anion Gap Thom alissa or Plasma mmol/L to non-numeric Health results) System Glomerular > 90 Normal (applies GFR [facility] filtration to non-numeric Health rate/1.73 sq results) System M.predicted [Volume Rate/Area] in Serum or Plasma by Creatinine-based formula (CKD-EPI) eGFR will provide clinicians with a more accurate indicator of renal function then the serum creatinine. The eGFR is automa tically calculated from an empiric formula (endorsed by the National Kidney Found[employer] ion) which incorporates age, sex, and race.Clinicians may notice surprisingly low GFR's with serum creatinine valueswithin normal range- particularly in elderly wo men (with low muscle mass).In the hospital setting, the eGFR should add an element of safety in drug dosing, in assessing the risk of IV contrast administration, and in assessing vascular risk.The NKF staging system is as follows:Normal: eGFR >90 with no kidney markersStage 1: eGFR >90 with kidney markers*Stage 2: eGFR 60- 89Stage 3: eGFR 30-59Stage 4: eGFR 15-29Stage 5: eGFR <15 (usually requir ing dialysis)*Markers include: Proteinuria, Hematuria, abnormal imaging-studies, or other blood or urine test abnormalities ID Date Data Source [id number] 01/10/2020 01:33:25 AM EDT [facility] System Name Value Range Interpretation Description Data Source(s ) Supporting Code Document(s ) Reagin Ab Non-react Normal (applies to RPR. [facility] non-numeric Health System in Serum by results) RPR ID Date Data Source [id number] 01/10/2020 01:33:25 AM EDT [facility] System Perform at 6am Name Value Range Interpretation Description Data Sup porting Code Source(s) Document(s ) Leukocytes 10.5 Normal (applies WBC Count [facility] [#/volume] in {10^3_uL to non-numeric Health Unspecified } results) System specimen by Automated count Erythrocytes 3.64 Below low normal RBC Count [facility] [#/volume] in {10^6_uL Health Blood by } System Automated count Hemoglobin 11.3 Below low normal Hemoglobin [facility] [Mass/volume] in {gm/dL} Health Blood System Hematocrit 33.3 % Below low normal Hematocrit [facility] [Volume Health Fraction] of System Blood Erythrocyte mean 91.5 fl Normal (applies MCV [facility] corpuscular to non-numeric Health volume [Entitic results) System volume] by Automated count Erythrocyte mean 31.0 pg Normal (applies MCH [facility] corpuscular to non-numeric Health hemoglobin results) System [Entitic mass] by Automated count Erythrocyte mean 33.9 Normal (applies MCHC [facility] corpuscular {gm/dL} to non-numeric Health hemoglobin results) System concentration [Mass/volume] by Automated count Erythrocyte 13.2 % Normal (applies RDW-CV [facility] distribution to non-numeric Health width [Entitic results) System volume] by Automated count Platelets 201 Normal (applies Platelet Count [facility] [#/volume] in {10^3_uL to non-numeric Health Plasma by } results) System Automated count Platelet mean 10.5 fl Normal (applies MPV [facility] volume [Entitic to non-numeric Health volume] in Blood results) System by Automated count Nucleated 0.0 Normal (applies NRBC % [facility] erythrocytes {/100_WB to non-numeric Health [#/volume] in C} results) System Body fluid NRBC# 0.00 Normal (applies NRBC # [facility] {10^3_uL to non-numeric Health } results) System Neutrophils/100 66.3 % Normal (applies Neutrophil % [facility] leukocytes in to non-numeric Health Blood by results) System Automated count Neutrophils 7.0 Normal (applies Neutrophil # [facility] [#/volume] in {10^3_uL to non-numeric Health Body fluid } results) System Lymphocytes 24.1 % Normal (applies Lymphocyte % [facility] [#/volume] in to non-numeric Health Blood by results) System Automated count Lymphocyte 2.5 Normal (applies Lymphocyte # [facility] percent {10^3_uL to non-numeric Health differential } results) System count (procedure) Monocytes/100 7.7 % Normal (applies Monocyte % [facility] leukocytes in to non-numeric Health Blood results) System Monocytes 0.8 Normal (applies Monocyte # [facility] [#/volume] in {10^3_uL to non-numeric Health Blood by Manual } results) System count Eosinophils/100 0.9 % Normal (applies Eosinophil % [facility] leukocytes in to non-numeric Health Unspecified results) System specimen Eosinophils 0.09 Normal (applies Eosinophil # [facility] [#/volume] in {10^3_uL to non-numeric Health Blood } results) System Basophils/100 0.5 % Normal (applies Basophil % [facility] leukocytes in to non-numeric Health Unspecified results) System specimen by Manual count Basophils 0.05 Normal (applies Basophil # [facility] [#/volume] in {10^3_uL to non-numeric Health Blood by } results) System Automated count ImmatureGranuloc 0.05 Normal (applies Immature [facility] ytes# {10^3_uL to non-numeric Granulocytes # Health } results) System ImmatureGranuloc 0.5 % Normal (applies Immature [facility] ytes% to non-numeric Granulocytes % Health results) System ID Date Data Source [id number] 01/10/2020 01:33:25 AM EDT Monico miller System Name Value Range Interpretation Description Data Sup porting Code Source(s) Document(s ) Color Yellow Normal (applies Color [facility] to non-numeric Health results) System Appearance of CLEAR Normal (applies Urine [facility] Urine to non-numeric Appearance Health results) System Specific gravity 1.013 Normal (applies Urine Specific [place] [facility] of Urine to non-numeric [place] [facility] results) System pH.. 6.0 Normal (applies pH.. [facility] {pH_unit to non-numeric Health s} results) System Glucose,UA NEG Normal (applies Glucose, UA [facility] to non-numeric Health results) System Protein NEG Normal (applies Protein [facility] [Mass/volume] in to non-numeric Health Serum or Plasma results) System BilirubinUrine NEG Normal (applies Bilirubin [facility] to non-numeric Urine Health results) System Urobilinogen < 2.0 Normal (applies Urobilinogen [facility] [Mass/volume] in to non-numeric UA Health Urine results) System Reference Range: Negative or <=2.0 Ketones NEG Normal (applies Ketones UA [facility] [Mass/volume] in to non-numeric Health S ystem Urine results) Nitrate+Nitrite Negative Normal (applies Nitrite [facility] [Mass/volume] in to non-numeric Health S ystem Unspecified specimen results) Leukocyte esterase NEG Normal (applies Leukocyte Majo ase [facility] [Units/volume] in to non-numeric Concentration Hea lt System Urine results) Leukocytes 1 {/HPF} Normal (applies White Blood Cells Thom alissa [#/volume] in to non-numeric Health Syst em Unspecified specimen results) by Automated count RedBloodCells < 1 /HPF Normal (applies Red Blood Cells [facility] to non-numeric Health System results) Epithelial cells 5 {/HPF} Normal (applies Epithelial Cells [facility] [Presence] in to non-numeric Health Syst em Unspecified specimen results) by Wet preparation Mucus RARE Normal (applies Mucus [facility] to non-numeric Health System results) UrineBlood NEG Normal (applies Urine Blood [facility] to non-numeric Health System results) ID Date Data Source [id number] 01/10/2020 01:33:25 AM EDT [facility] System Name Value Range Interpretation Code Description Data Shana rce(s) Supporting Document(s ) Lead.. < 1 Normal (applies to Lead.. [facility] non-numeric results) Health Sy stem See Note 1Note 1This test was developed and its analytical performance characteristics have been determined by [employer]. It has not been cleared or approved by theA. This assay has been validated pursuant to the CLIA regulations and is used for clinical purposes.THIS T EST WAS PERFORMED AT:[employer] [id number] [facility],MDReported Date and Time - 10/16/19 15:23 Lead.. < 1 Normal (applies to non-numeric Lead.. [facility] System results) See Note 1Note 1This test was developed and its analytical performance characteristics have been determined by [employer]. It has not been cleared or approved by theA. This assay has been validated pursuant to the CLIA regulations and is used for clinical purposes.THIS T EST WAS PERFORMED AT:[employer] [address]FXECHZIC [facility],MDReported Date and Time - 10/19/19 21:44 ID Date Data Source [id number] 01/10/2020 01:33:25 AM EDT [employer] [facility] System Name Value Range Interpretation Description Data Sup porting Code Source(s) Document(s ) TechnicalResults NEGATIVE Normal (applies Technical [facility] to non-numeric Results Health results) System NEGATIVE; AT LEAST TWO COPIES OF THE SMN 1 GENE DETECTED SMN1 2 COPIES Normal (applies to SMN1 [facility] non-numeric results) System SMN2 1 COPY Normal (applies to SMN2 [facility] non-numeric results) System Interpretation. SEE NOTE Normal (applies to Interpretation. [facility] non-numeric results) System This analysis identified at least two (2 ) copies of the CPT1ptob. This result does not rule out carrier status or adiagnosi s of spinal muscular atrophy (SMA).* This testingcannot differentiate between lowell viduals who have all copiesof the SMN1 gene on one chromosome and NONE on the opposi techromosome as well as other mutations in the SMN1 gene. Therisk for mutations th at cause SMA other than the deletionstested depends greatly on family history and cl inicalpresentation.Risk to be a carrierEthnicity Detection Prior 2 SMN1 3 [id number] carrier copy copyrisk result resultCaucasian 95% 1 in 35 1 in 632 1 in 3500Ashkenazi 90% 1 in 41 1 in 350 1 in 4000JewishAsian 93% 1 in 53 1 in 628 1 in 5000African 71 % 1 in 66 1 in 121 1 in 3000AmericanHispanic 91% 1 in 117 1 in 1061 1 in 072[address]SPOOPRMGEGHN INFORMATIONSpinal muscular atrophy (SMA) is a family of disorders thatare characterized by progressive muscle weak ness due to lossof anterior horn cells. A deletion of exon 7 in the BNZ6amni cause s 95% of SMA. New mutations account forapproximately 2% of SMA. SMN2 genes are able to produce aprotein identical to that of the SMN1 gene, but at a reduced( 10-20%) capacity. As a result the number of copies of OEH8txb been shown to influenc e the severity of the disease.This assay detects the copy number of the two commo n genes(SMN1 and SMN2) recommended by the [employer] (ACM G) for population-based SMA carrierscreening.Health care providers, please contact your local [facility] genetic counselor or call [facility] at [facility] ([phone]) for assistance withthe in terpretation of these results.METHODOLOGY:The copy number of the SMA genes (SMN1 and S MN2) is detectedby quantitative PCR. Although rare, false positive or falsenegative re sults may occur. All results should beinterpreted in context of clinical fin dings, relevanthistory, and other laboratory data. Laboratory results andsubmitted cl inical information reviewed by Cecelia Sanabria,Ph.D., [facility], [facility].This test was de veloped and its analytical performancecharacteristics have been det ermined by [facility]. It has not beenclea red or approved by FDA. This assay has been validatedpursuant to the CLIA regulation s and is used for clinicalpurposes.THIS TEST WAS PERFORMED AT:[employer]/[facility] [id number] [facility] [address]JRJAABONY GUNDERSON MD,PHD,MBARepo rted Date and Time - 10/19/2019 21:44 ID Date Data Source [id number] 01/10/2020 01:33:25 AM EDT [facility] System Name Value Range Interpretation Code Description Data Shana rce(s) Supporting Document(s ) RDW. 13.1 % Normal (applies to RDW. [facility] non-numeric results) System THIS TEST WAS PERFORMED AT:[employer] [id number] TSAO,MDReported Date and Time - 10/14/2019 11:31 hemoglobin. 11.6 g/dL Below low normal hemoglobin. [facility] RBC. 3.74 {Million/uL} Below low normal RBC. [facility] System Hematocrit. 34.9 % Below low normal Hematocrit. [facility] MCV. 93.3 fL Normal (applies to MCV. [facility] non-numeric System results) MCH. 31.0 pg Normal (applies to MCH. [facility] non-numeric System results) RDW. 13.1 % Normal (applies to RDW. [facility] non-numeric System results) THIS TEST WAS PERFORMED AT:[employer] [address]CPJEDIZR TSAO,MDReported Date and Time - 10/14/2019 11:31 HemoglobinA 96.6 Normal Hemoglobin A [facility] % (applies to Health non-numeric System results) HemoglobinS DNR Normal Hemoglobin S [facility] (applies to Health non-numeric System results) HemoglobinC DNR Normal Hemoglobin C [facility] (applies to Health non-numeric System results) OTHERHEMOGLOBIN1 DNR Normal OTHER HEMOGLOBIN [facility] (applies to 1 Health non-numeric System results) HEMOGLOBINE DNR Normal HEMOGLOBIN E [facility] (applies to Health non-numeric System results) OTHERHEMOGLOBIN2 DNR Normal OTHER HEMOGLOBIN [facility] (applies to 2 Health non-numeric System results) HemoglobinElectrophoresisInterpretation * Normal Hemoglobin [facility] (applies to Electrophoresis Health non-numeric Interpretation System results) No hemoglobin variant identified.THIS TE ST WAS PERFORMED AT:[employer] [facility] [place] [address]GWARNRTD KANEMDReported Date and Time - 10/19/19 20 21:44 HemoglobinA2 2.4 % Normal (applies to Hemoglobin A2 [facility] non-numeric System results) Hemoglobin F < 1.0 Normal (applies to Hemoglobin, F [facility] [Mass/volume] in Blood non-numeric Syste m by Electrophoresis results) ID Date Data Source [id number] 01/10/2020 01:33:25 AM EDT [facility] System Name Value Range Interpretation Description Data Sup porting Code Source(s) Document(s ) Leukocytes 8.2 Normal (applies WBC Count [facility] [#/volume] in {10^3_uL to non-numeric Health Unspecified } results) System specimen by Automated count Erythrocytes 3.86 Below low normal RBC Count [facility] [#/volume] in {10^6_uL Health Blood by } System Automated count Hemoglobin 11.9 Below low normal Hemoglobin [facility] [Mass/volume] in {gm/dL} Health Blood System Hematocrit 35.9 % Below low normal Hematocrit [facility] [Volume Health Fraction] of System Blood Erythrocyte mean 93.0 fl Normal (applies MCV [facility] corpuscular to non-numeric Health volume [Entitic results) System volume] by Automated count Erythrocyte mean 30.8 pg Normal (applies MCH [facility] corpuscular to non-numeric Health hemoglobin results) System [Entitic mass] by Automated count Erythrocyte mean 33.1 Normal (applies MCHC [facility] [facility] corpuscular {gm/dL} to non-numeric Health hemoglobin results) System concentration [Mass/volume] by Automated count Erythrocyte 13.3 % Normal (applies RDW-CV [facility] distribution to non-numeric Health width [Entitic results) System volume] by Automated count Platelets 272 Normal (applies Platelet Count [facility] [#/volume] in {10^3_uL to non-numeric Health Plasma by } results) System Automated count Platelet mean 9.8 fl Normal (applies MPV [facility] volume [Entitic to non-numeric Health volume] in Blood results) System by Automated count Nucleated 0.0 Normal (applies NRBC % [facility] erythrocytes {/100_WB to non-numeric Health [#/volume] in C} results) System Body fluid NRBC# 0.00 Normal (applies NRBC # [facility] {10^3_uL to non-numeric Health } results) System Neutrophils/100 66.4 % Normal (applies Neutrophil % [facility] alissa leukocytes in to non-numeric Health Blood by results) System Automated count Neutrophils 5.5 Normal (applies Neutrophil # [facility] [#/volume] in {10^3_uL to non-numeric Health Body fluid } results) System Lymphocytes 25.2 % Normal (applies Lymphocyte % [facility] [#/volume] in to non-numeric Health Blood by results) System Automated count Lymphocyte 2.1 Normal (applies Lymphocyte # [facility] percent {10^3_uL to non-numeric Health differential } results) System count (procedure) Monocytes/100 6.6 % Normal (applies Monocyte % [facility] leukocytes in to non-numeric Health Blood results) System Monocytes 0.5 Normal (applies Monocyte # [facility] [#/volume] in {10^3_uL to non-numeric Health Blood by Manual } results) System count Eosinophils/100 0.9 % Normal (applies Eosinophil % [facility] al[facility] leukocytes in to non-numeric Health Unspecified results) System specimen Eosinophils 0.07 Normal (applies Eosinophil # [facility] [#/volume] in {10^3_uL to non-numeric Health Blood } results) System Basophils/100 0.5 % Normal (applies Basophil % [facility] leukocytes in to non-numeric Health Unspecified results) System specimen by Manual count Basophils 0.04 Normal (applies Basophil # [facility] [#/volume] in {10^3_uL to non-numeric Health Blood by } results) System Automated count ImmatureGranuloc 0.03 Normal (applies Immature [facility] ytes# {10^3_uL to non-numeric Granulocytes # Health } results) System ImmatureGranuloc 0.4 % Normal (applies Immature [facility] ytes% to non-numeric Granulocytes % Health results) System ID Date Data Source [id number] 01/10/2020 01:33:25 AM EDT [facility] System Name Value Range Interpretation Code Description Data Shana rce(s) Supporting Document(s ) HbA1C 5.1 % Normal (applies to HbA1C [facility] non-numeric results) System ID Date Data Source [id number] 01/10/2020 01:33:25 AM EDT [facility] System Name Value Range Interpretation Code Description Data Shana rce(s) Supporting Document(s ) Method. SEE NOTE Normal (applies to Method. [facility] non-numeric Health System results) The mutations are detected by multiplex- polymerase chainreaction (PCR) amplification of specific CF gene regions,followed by nucleotide sequence analysis on a massivelyparallel sequencing platform. A lthough rare, false positiveor false negative results may occur. All results should be interpreted in the context of clinical findings, relevanthistory, and other lab oratory data. Ethinicity NG Normal (applies to Ethinicity [facility] e Health non-numeric results) System CFCarrierScreen NEGATIVE Normal (applies to CF Carrier S creen [facility] non-numeric results) System NEGATIVE; NONE OF THE MUTATIONS LISTED B ELOW WERE DETECTED Interpretation SEE NOTE Normal (applies to Interpretation [facility] non-numeric results) System This result does not rule out the presen ce of a mutation ora diagnosis of cystic fibrosis disease (CF). The risk formutat ions that cause CF other than the ones tested dependsgreatly on family history, clinic al presentation, andethnicity.Chance of Having a CF MutationEthnic Group Detec tion Before After NegativeRate Test ResultAshkenazi Congregation 94% 1 in 24 1 in 400Non- 88% 1 in 25 1 in 208CaucasianHispanic-Kazakh 72% 1 in 46 1 in 164African-Kazakh 65% 1 in 65 1 in 186Asian-Kazakh 49% 1 in 94 1 in 184Other insufficient da ta available Health care providers, please contact your local y prime' gen eti counselor or call [email or web address] [facility] at [email or web address] ) for assistance withinterpretation of these results. Mutations/Polymorphisms SEE Normal Mutations/Polymo rphisms [facility] NOTE (applies to Health non-numeric System results) MUTATIONS ANALYZED:G85E (c.254G>A) S549N (c.1646G>A)394delTT (c.262delTT) G551D (c.1652G>A)R117H (c.350G>A) R553X (c.1657C>T)621+1 G>T (c.489+1G>T) R560T (c.1679G>C)711+1 G>T (c.579+1G>T) 1898+1 G>A (c.1766+1G>A)1078delT (c.948delT) 2183AA>G (c.2051delAAinsG)R334W (c.10 00C>T) 2184delA (c.2052delA)R347H (c.1040G>A) 2789+5 G>A (c.2657+5G> A)R347P (c.1040G>C) 3120+1 G>A (c.2988+1G>A)A455E (c.1364C>A) R11 62X (c.3484C>T)G478znt (c.1519delATC) 3659delC (c.3528delC)D478iqn (c.1521delC TT) 3849+10kb C>T (c.3717+15265A>T)V520F (c.1558G>T) 3876delA (c.3744de lA)1717-1 G>A (c.1585-1G>A) 3905insT (c.3773insT)G542X (c.1624G>T) Y9846M (c.3846G>A)S549R (c.1645A>C or c.1647T>G) I6251C (c.3909C>G)This assay detects thirty-two mutations, including thetwenty-three core mutations recommend ed by the AmericanCollege of Medical Genetics (ACMG) and the [place] Congressof Obste tricians and Gynecologists (ACOG) forpopulation-based CF carrier screening . In addition to theACMG/ACOG panel, this assay detects nine additionalmutations. While these mutations are rare in the [place]population, the scientific and medical literature indicatesthat these mutations are not benign polymorphisms. Thestatus of the intron 9 (formerly intron 8) polyT tract isreported only when the R117H mut ation is detected. Reviewer SEE NOTE Normal (applies to Reviewer [facility] System non-numeric results) Laboratory results and submitted clinica l informationreviewed by Denzel Reyes, Ph.D., [facility], [facility].For additional infor mation, please refer [email or web address]/ faq/cfscreen(This link is being provided for informational/educationalpurposes only.) This test was developed and its analytical performancecharacteristics have been det ermined by [facility]. It has not beenclea red or approved by FDA. This assay has been validatedpursuant to the CLIA regulation s and is used for clinicalpurposes.THIS TEST WAS PERFORMED AT:[facility]/[facility] [id number] [facility] [id number] GUNDERSON MD,PHD,MBARepo rted Date and Time - 10/19/2019 21:44 ID Date Data Source [id number] 01/10/2020 01:33:25 AM EDT [facility] System Name Value Range Interpretation Description Data Sup porting Code Source(s) Document(s ) Sodium 137 Normal (applies Sodium, Serum [facility] [Moles/volume] in mmol/L to non-numeric Health Serum or Plasma results) System Potassium 4.1 Normal (applies Potassium, [facility] [Mass/volume] in mmol/L to non-numeric Serum Health Serum or Plasma results) System Chloride 105 Normal (applies Chloride, [facility] [Moles/volume] in mmol/L to non-numeric Serum Health Serum or Plasma results) System Carbon dioxide, 24.2 Normal (applies CO2, Serum [facility] total mmol/L to non-numeric Health [Moles/volume] in results) System Serum or Plasma TotalProtein 6.7 Normal (applies Total Protein [facility] mg/dl to non-numeric Health results) System Glucose 74 Normal (applies Glucose, [facility] [Mass/volume] in mg/dL to non-numeric Serum Health Serum or Plasma results) System Urea nitrogen 10 Normal (applies Blood Urea [facility] [Mass/volume] in mg/dl to non-numeric Nitrogen, Health Serum or Plasma results) Serum System Creatinine 0.54 Normal (applies Creatinine, [facility] [Mass/volume] in mg/dl to non-numeric Serum Health Serum or Plasma results) System Alkaline 79 Normal (applies Alkaline [facility] phosphatase {IU/L} to non-numeric Phosphatase, Health isoenzymes results) Serum System [Enzymatic activity/volume] in Serum or Plasma by Heat stability Bilirubin.total 0.3 Normal (applies Bilirubin, [facility] [Mass/volume] in mg/dl to non-numeric Serum Total Health Serum or Plasma results) System DirectBilirubin 0.1 Normal (applies Direct [facility] mg/dl to non-numeric Bilirubin Health results) System Aspartate 17 Normal (applies Aspartate [facility] aminotransferase {IU/L} to non-numeric Transaminase, Heal th [Enzymatic results) Serum System activity/volume] in Serum or Plasma by With P-5'-P Albumin 3.8 Normal (applies Albumin, [facility] [Mass/volume] in {gm/dl} to non-numeric Serum Health Serum or Plasma results) System I.Phosphorus 3.5 Normal (applies I. Phosphorus [facility] mg/dl to non-numeric Health results) System Alanine 13 Normal (applies Alanine [facility] aminotransferase {IU/L} to non-numeric Aminotransfer Heal th [Enzymatic results) ase, Serum System activity/volume] in Serum or Plasma Calcium 8.9 Normal (applies Calcium, [facility] [Mass/volume] in mg/dl to non-numeric Total Serum Health Serum or Plasma results) System A/GRatio 1.31 Normal (applies A/G Ratio [facility] to non-numeric Health results) System Urate 3.7 Normal (applies Uric Acid, [facility] [Mass/volume] in mg/dl to non-numeric Serum Health Serum or Plasma results) System Anion gap in Serum 7.80 Normal (applies Anion Gap Thom alissa or Plasma mmol/L to non-numeric Health results) System Glomerular > 90 Normal (applies GFR [facility] filtration to non-numeric Health rate/1.73 sq results) System M.predicted [Volume Rate/Area] in Serum or Plasma by Creatinine-based formula (CKD-EPI) eGFR will provide clinicians with a more accurate indicator of renal function then the serum creatinine. The eGFR is automa tically calculated from an empiric formula (endorsed by the National Kidney Foundat ion) which incorporates age, sex, and race.Clinicians may notice surprisingly low GFR's with serum creatinine valueswithin normal range- particularly in elderly wo men (with low muscle mass).In the hospital setting, the eGFR should add an element of safety in drug dosing, in assessing the risk of IV contrast administration, and in assessing vascular risk.The NKF staging system is as follows:Normal: eGFR >90 with no kidney markersStage 1: eGFR >90 with kidney markers*Stage 2: eGFR 60- 89Stage 3: eGFR 30-59Stage 4: eGFR 15-29Stage 5: eGFR <15 (usually requir ing dialysis)*Markers include: Proteinuria, Hematuria, abnormal imaging-studies, or other blood or urine test abnormalities ID Date Data Source [id number] 01/10/2020 01:33:25 AM EDT [facility] Name Value Range Interpretation Code Description Data Shana rce(s) Supporting Document(s ) TB2-NIL. 4.64 Normal (applies to TB2-NIL. [facility] {IU/mL} non-numeric Health System results) The Nil tube value reflects the backgrou nd interferongamma immune response of the patient's blood sample.This value has be en subtracted from the patient'sdisplayed TB and Mitogen results.Lower than expected results with the Mitogen tubeprevent false-negative Quantiferon readings byde tecting a patient with a potential immunesuppressive condition and/or subop timal pre-analyticalspecimen handling.The TB1 Antigen tube is coated with theM. tuberc ulosis-specific antigens designed to elicitresponses from TB antigen primed C D4+ helperT-lymphocytes.The TB2 Antigen tube is coated with theM. tuberculosis-specif ic antigens designed to elicitresponses from TB antigen primed CD4+ helper and CD8+cy totoxic T-lymphocytes.For additional information, please refer tohttps://education.[employer] Pellets.Easiest Credit Card To Get Approved For/faq/CET387(This link is being provided for informational /educational purposes only.)THIS TEST WAS PERFORMED AT:[facility] [id number] ARLENE MIDDLETONeported Date and Time - 10/16/2019 10:03 Quantiferon-TBGold. POSITIVE Abnormal (applies Quantiferon- TB Gold. [facility] to non-numeric Health System results) In healthy persons who have a lowlikelih ood both of M. tuberculosisinfection and of progression to active tuberculosis if in fected, asingle positive QFT result should not be taken as reliable evidence of M. tuberculosis infection. Repeattesting, with either the initial test or a different t est, may be considered on a [id number] basis. NIL 3.13 {IU/mL} Normal (applies to NIL [facility] non-numeric results) System Mitogen-NIL 4.79 {IU/mL} Normal (applies to Mitogen-NIL [facility] non-numeric results) System TB1-NIL. 4.71 {IU/mL} Normal (applies to TB1-NIL. [facility] non-numeric results) System TB2-NIL. 4.64 {IU/mL} Normal (applies to TB2-NIL. [facility] non-numeric results) System The Nil tube value reflects the backgrou nd interferongamma immune response of the patient's blood sample.This value has be en subtracted from the patient'sdisplayed TB and Mitogen results.Lower than expected results with the Mitogen tubeprevent false-negative Quantiferon readings byde tecting a patient with a potential immunesuppressive condition and/or subop timal pre-analyticalspecimen handling.The TB1 Antigen tube is coated with theM. tuberc ulosis-specific antigens designed to elicitresponses from TB antigen primed C D4+ helperT-lymphocytes.The TB2 Antigen tube is coated with theM. tuberculosis-specif ic antigens designed to elicitresponses from TB antigen primed CD4+ helper and CD8+cy totoxic T-lymphocytes.For additional information, please refer tohttps://education.[place] Pellets.Easiest Credit Card To Get Approved For/faq/MBU277(This link is being provided for informational /educational purposes only.)THIS TEST WAS PERFORMED AT:[facility] [facility] [id number] Melisa MIDDLETON Date and Time - 10/19/2019 21:44 ID Date Data Source [id number] 01/10/2020 01:33:25 AM EDT [facility] D[facility] System Name Value Range Interpretation Description Data Sup porting Code Source(s) Document(s ) aPTT in Blood 30.2 Normal (applies Activated [facility] by Coagulation {Seconds to non-numeric Partial Health assay } results) Thromboplastin System Time ID Date Data Source [id number] 01/10/2020 01:33:25 AM EDT [facility] System Name Value Range Interpretation Description Data Sup porting Code Source(s) Document(s ) Prothrombintim 10.70 Normal (applies Prothrombin [facility] e(PT) {seconds to non-numeric time (PT) Health System } results) INR in Blood 0.92 Normal (applies INR Result [facility] by Coagulation {Ratio} to non-numeric Health Sys tem assay results) Normal = 0.7-1.1Therapeutic = 2.0-3.0Mec hanical Heart = 3.0-4.5 ID Date Data Source [id number] 01/10/2020 01:33:25 AM EDT [facility] System Name Value Range Interpretation Description Data Sup porting Code Source(s) Document(s ) Reagin Ab Non-reactive Normal (applies RPR. [facility] [Presence Test to non-numeric Health ] in Methodology: results) System Serum by Nontreponemal RPR flocculation card test. ID Date Data Source [id number] 01/10/2020 01:33:25 AM EDT [facility] System Name Value Range Interpretation Description Data Sup porting Code Source(s) Document(s ) Deprecated NO GROWTH Aerobic [facility] Bacteria Culture, Urine Health System identified in Urine by Aerobe culture ID Date Data Source [id number] 01/10/2020 01:33:25 AM EDT [facility] System Name Value Range Interpretation Description Data Sup porting Code Source(s) Document(s ) Type O Normal (applies Type [facility] to non-numeric Health results) System D Ab [Titer] in Positive Normal (applies Rh [facility] Serum or Plasma to non-numeric Health results) System AntibodyScreen Negative Normal (applies Antibody [facility] to non-numeric Screen Health results) System ID Date Data Source [id number] 01/10/2020 01:33:25 AM EDT [facility] System Name Value Range Interpretation Description Data Sup porting Code Source(s) Document(s ) VaricellaResultValue 643.10 Normal (applies Varicella [facility] {index} to non-numeric Result Value Health results) System Index Interpretation------ --- <135.00 Negative - Antibody not detected1 35.00 - 164.99 Equivocal> or = 165.00 Positive - Antibody detectedA positive r esult indicates that the patienthas antibody to VZV but does not differentiatebetween an active or past infection. The clinical diagnosis must be interpreted in conjunc tion with the clinical signs and symptoms of the patient. This assay reliably measure s immunitydue to previous infection but may not be sensitive enough to detect antibo dies induced byvaccination. Thus, a negative result in a vaccinatedindividual does no t necessarily indicatesusceptibility to VZV infection. A more sensitivetest for vacc ination-induced immunity is VaricellaZoster Virus Antibody Immunity Screen, ACIF.THI S TEST WAS PERFORMED AT:[facility] [id number] Date and Time - 10/16/19 20 19:40 VaricellaResultValue 643.10 Normal (applies Varicella [facility] {index} to non-numeric Result Value Health Syste m results) Index Interpretation------ --- <135.00 Negative - Antibody not detected1 35.00 - 164.99 Equivocal> or = 165.00 Positive - Antibody detectedA positive r esult indicates that the patienthas antibody to VZV but does not differentiatebetween an active or past infection. The clinical diagnosis must be interpreted in conjunc tion with the clinical signs and symptoms of the patient. This assay reliably measure s immunitydue to previous infection but may not be sensitive enough to detect antibo dies induced byvaccination. Thus, a negative result in a vaccinatedindividual does no t necessarily indicatesusceptibility to VZV infection. A more sensitivetest for vacc ination-induced immunity is VaricellaZoster Virus Antibody Immunity Screen, ACIF.THI S TEST WAS PERFORMED AT:[facility] [facility] [address]APOFPZAHWillamette [facility] and Time - 10/19/19 21:44 ID Date Data Source [id number] 01/10/2020 01:33:25 AM EDT Monico miller System Name Value Range Interpretation Description Data Sup porting Code Source(s) Document(s ) RubeolaABIgGResultValue 18.20 Normal (applies Rubeola AB [facility] AU/mL to non-numeric IgG Result Health results) Value System AU/mL Interpretation----- <13.50 Jphalqix38.50-16.49 Equivocal>16.49 PositiveA positive result indicates that the patient hasantibody t o measles virus. It does not differentiate between an active or past infection. The clinical diagnosis must be interpreted in conjunction with clinical signs and symp toms of the patient.THIS TEST WAS PERFORMED AT:[facility] [id number] TSAORESEARCH BELTON HOSPITALeport and Time - 10/16/19 19:40 RubeolaABIgGResultValue 18.20 AU/mL Normal (applies Rubeola AB [facility] to non-numeric IgG Result Health System results) Value AU/mL Interpretation----- <13.50 Yphehvew52.50-16.49 Equivocal>16.49 PositiveA positive result indicates that the patient hasantibody t o measles virus. It does not differentiate between an active or past infection. The clinical diagnosis must be interpreted in conjunction with clinical signs and symp toms of the patient.THIS TEST WAS PERFORMED AT:[facility] [address]AWRJLIPF TSAORESEARCH BELTON HOSPITALeport and Time - 10/19/19 21:44 ID Date Data Source [id number] 01/10/2020 01:33:25 AM EDT [facility] System Name Value Range Interpretation Description Data Sup porting Code Source(s) Document(s ) Human NONREACTIVE Normal (applies HIV test, [facility] immunodeficien Normal Range: to non-numeric Routine Health cy virus Non results) (antigen and System antibody titer ReactiveNegativ antibody measurement e for HIV-1 testing) (procedure) antigen and HIV-1/HIV-2 antibodies. No laboratory evidence of HIV infection.Test was performed at [facility], [address] [place] [address]. ID Date Data Source [id number] 01/10/2020 01:33:25 AM EDT [facility] System Name Value Range Interpretation Description Data Sup porting Code Source(s) Document(s ) Hepatitis B virus DNR Normal (applies CONFIRMATION [facility] surface Ag to non-numeric Health System [Presence] in results) Serum or Plasma by Neutralization test Reported Date and Time - 10/14/2019 14:4 4 HepatitisBSurfaceAntigen. NON-REACTIVE THIS TEST Normal H epatitis B [facility] WAS PERFORMED AT:[employer] (applies to Surface [facility] [place] [address] [facility] results) [facility] [id number] MD KANE Hepatitis B virus surface DNR Normal CONFIRMATIO [facility] Ag [Presence] in Serum or (applies to N He alth Plasma by Neutralization non-numeric Sys tem test results) Reported Date and Time - 10/19/2019 21:4 4 ID Date Data Source [id number] 01/10/2020 01:33:25 AM EDT [facility] System Name Value Range Interpretation Description Data Sup porting Code Source(s) Document(s ) Type O Normal (applies Type [facility] to non-numeric Health results) System D Ab [Titer] in Positive Normal (applies Rh [facility] Serum or Plasma to non-numeric Health results) System AntibodyScreen Negative Normal (applies Antibody [facility] to non-numeric Screen Health results) System ID Date Data Source [id number] 01/10/2020 01:33:25 AM EDT [facility] System Name Value Range Interpretation Description Data Sup porting Code Source(s) Document(s ) Leukocytes 11.3 Above high WBC Count [facility] [#/volume] in {10^3_uL normal Health Unspecified } System specimen by Automated count Erythrocytes 3.85 Below low normal RBC Count [facility] [#/volume] in {10^6_uL Health Blood by } System Automated count Hemoglobin 11.8 Below low normal Hemoglobin [facility] [Mass/volume] in {gm/dL} Health Blood System Hematocrit 34.8 % Below low normal Hematocrit [facility] [Volume Health Fraction] of System Blood Erythrocyte mean 90.4 fl Normal (applies MCV [facility] corpuscular to non-numeric Health volume [Entitic results) System volume] by Automated count Erythrocyte mean 30.6 pg Normal (applies MCH [facility] corpuscular to non-numeric Health hemoglobin results) System [Entitic mass] by Automated count Erythrocyte mean 33.9 Normal (applies MCHC [facility] corpuscular {gm/dL} to non-numeric Health hemoglobin results) System concentration [Mass/volume] by Automated count Erythrocyte 12.9 % Normal (applies RDW-CV [facility] distribution to non-numeric Health width [Entitic results) System volume] by Automated count Platelets 262 Normal (applies Platelet Count [facility] [#/volume] in {10^3_uL to non-numeric Health Plasma by } results) System Automated count Platelet mean 10.0 fl Normal (applies MPV [facility] volume [Entitic to non-numeric Health volume] in Blood results) System by Automated count Nucleated 0.0 Normal (applies NRBC % [facility] erythrocytes {/100_WB to non-numeric Health [#/volume] in C} results) System Body fluid NRBC# 0.00 Normal (applies NRBC # [facility] {10^3_uL to non-numeric Health } results) System Neutrophils/100 69.6 % Normal (applies Neutrophil % Thom alissa leukocytes in to non-numeric Health Blood by results) System Automated count Neutrophils 7.8 Normal (applies Neutrophil # [facility] [#/volume] in {10^3_uL to non-numeric Health Body fluid } results) System Lymphocytes 22.9 % Normal (applies Lymphocyte % [facility] [#/volume] in to non-numeric Health Blood by results) System Automated count Lymphocyte 2.6 Normal (applies Lymphocyte # [facility] percent {10^3_uL to non-numeric Health differential } results) System count (procedure) Monocytes/100 6.0 % Normal (applies Monocyte % [facility] leukocytes in to non-numeric Health Blood results) System Monocytes 0.7 Normal (applies Monocyte # [facility] [#/volume] in {10^3_uL to non-numeric Health Blood by Manual } results) System count Eosinophils/100 0.6 % Normal (applies Eosinophil % Thom alissa leukocytes in to non-numeric Health Unspecified results) System specimen Eosinophils 0.07 Normal (applies Eosinophil # [facility] [#/volume] in {10^3_uL to non-numeric Health Blood } results) System Basophils/100 0.4 % Normal (applies Basophil % [facility] leukocytes in to non-numeric Health Unspecified results) System specimen by Manual count Basophils 0.04 Normal (applies Basophil # [facility] [#/volume] in {10^3_uL to non-numeric Health Blood by } results) System Automated count ImmatureGranuloc 0.06 Normal (applies Immature [facility] ytes# {10^3_uL to non-numeric Granulocytes # Health } results) System ImmatureGranuloc 0.5 % Normal (applies Immature [facility] ytes% to non-numeric Granulocytes % Health results) System ID Date Data Source [id number] 01/10/2020 01:33:25 AM EDT [facility] System Name Value Range Interpretation Description Data Sup porting Code Source(s) Document(s ) hCGQuantitative 5677.00 Above high hCG [facility] {mIU/mL} normal Quantitative Health System Negative = <5 mIU/mLAPPROXIMATE GEST. AG E APPROXIMATE HCG mIU/ML 0.2 - 1 week 5 - 50 1 - 2 w eeks 50 - 500 2 - 3 weeks 100 - 5,000 3 - 4 weeks 500 - 10,000 4 - 5 weeks 1,000 - 50,000 5 - 6 weeks 10,000 - 100,000 6 - 8 weeks 15,000 - 200,000 8 - 12 weeks 10,000 - 1 00,000HCG levels between 5-25 mIU/mL may be indicative of early . Correlati on with other clinical findings and/or repeat of HCG quantitative testing recommened. ID Date Data Source [id number] 01/10/2020 01:33:25 AM EDT [facility] System Name Value Range Interpretation Description Data Sup porting Code Source(s) Document(s ) Sodium 137 Normal (applies Sodium, Serum [facility] [Moles/volume] in mmol/L to non-numeric Health Serum or Plasma results) System Potassium 3.5 Normal (applies Potassium, [facility] [Mass/volume] in mmol/L to non-numeric Serum Health Serum or Plasma results) System Chloride 105 Normal (applies Chloride, [facility] [Moles/volume] in mmol/L to non-numeric Serum Health Serum or Plasma results) System Carbon dioxide, 20.1 Below low normal CO2, Serum [facility] total mmol/L Health [Moles/volume] in System Serum or Plasma TotalProtein 6.4 Normal (applies Total Protein [facility] mg/dl to non-numeric Health results) System Glucose 115 Above high Glucose, [facility] [Mass/volume] in mg/dL normal Serum Health Serum or Plasma System Urea nitrogen 11 Normal (applies Blood Urea [facility] [Mass/volume] in mg/dl to non-numeric Nitrogen, Health Serum or Plasma results) Serum System Creatinine 0.61 Normal (applies Creatinine, [facility] [Mass/volume] in mg/dl to non-numeric Serum Health Serum or Plasma results) System Alkaline 93 Normal (applies Alkaline [facility] phosphatase {IU/L} to non-numeric Phosphatase, Health isoenzymes results) Serum System [Enzymatic activity/volume] in Serum or Plasma by Heat stability Bilirubin.total 0.3 Normal (applies Bilirubin, [facility] [Mass/volume] in mg/dl to non-numeric Serum Total Health Serum or Plasma results) System DirectBilirubin 0.1 Normal (applies Direct [facility] mg/dl to non-numeric Bilirubin Health results) System Aspartate 22 Normal (applies Aspartate [facility] aminotransferase {IU/L} to non-numeric Transaminase, Heal th [Enzymatic results) Serum System activity/volume] in Serum or Plasma by With P-5'-P Albumin 3.6 Normal (applies Albumin, [facility] [Mass/volume] in {gm/dl} to non-numeric Serum Health Serum or Plasma results) System I.Phosphorus 4.0 Normal (applies I. Phosphorus [facility] mg/dl to non-numeric Health results) System Alanine 16 Normal (applies Alanine [facility] aminotransferase {IU/L} to non-numeric Aminotransfer Heal th [Enzymatic results) ase, Serum System activity/volume] in Serum or Plasma Calcium 8.6 Normal (applies Calcium, [facility] [Mass/volume] in mg/dl to non-numeric Total Serum Health Serum or Plasma results) System A/GRatio 1.29 Normal (applies A/G Ratio [facility] to non-numeric Health results) System Urate 4.5 Normal (applies Uric Acid, [facility] [Mass/volume] in mg/dl to non-numeric Serum Health Serum or Plasma results) System Anion gap in Serum 11.90 Normal (applies Anion Gap Thom laissa or Plasma mmol/L to non-numeric Health results) System Glomerular > 90 Normal (applies GFR [facility] filtration to non-numeric Health rate/1.73 sq results) System M.predicted [Volume Rate/Area] in Serum or Plasma by Creatinine-based formula (CKD-EPI) eGFR will provide clinicians with a more accurate indicator of renal function then the serum creatinine. The eGFR is automa tically calculated from an empiric formula (endorsed by the National Kidney [employer]at ion) which incorporates age, sex, and race.Clinicians may notice surprisingly low GFR's with serum creatinine valueswithin normal range- particularly in elderly wo men (with low muscle mass).In the hospital setting, the eGFR should add an element of safety in drug dosing, in assessing the risk of IV contrast administration, and in assessing vascular risk.The NKF staging system is as follows:Normal: eGFR >90 with no kidney markersStage 1: eGFR >90 with kidney markers*Stage 2: eGFR 60- 89Stage 3: eGFR 30-59Stage 4: eGFR 15-29Stage 5: eGFR <15 (usually requir ing dialysis)*Markers include: Proteinuria, Hematuria, abnormal imaging-studies, or other blood or urine test abnormalities ID Date Data Source [id number] 01/10/2020 01:33:25 AM EDT Monico miller System Name Value Range Interpretation Description Data Sup porting Code Source(s) Document(s ) Color Agata Normal (applies Color [facility] to non-numeric Health results) System Appearance of CLOUDY Normal (applies Urine [facility] Urine to non-numeric Appearance Health results) System Specific gravity 1.022 Normal (applies Urine Specific [facility] of Urine to non-numeric [place] [facility] results) System pH.. 6.0 Normal (applies pH.. [facility] {pH_unit to non-numeric Health s} results) System Glucose,UA 50 mg/dl Abnormal Glucose, UA [facility] (applies to Health non-numeric System results) Protein > =500 Abnormal Protein [facility] [Mass/volume] in (applies to Health Serum or Plasma non-numeric System results) BilirubinUrine NEG Normal (applies Bilirubin [facility] to non-numeric Urine Health results) System Urobilinogen < 2.0 Normal (applies Urobilinogen [facility] [Mass/volume] in to non-numeric UA Health Urine results) System Reference Range: Negative or <=2.0 Ketones NEG Normal (applies Ketones UA [facility] [Mass/volume] in to non-numeric Health S ystem Urine results) Nitrate+Nitrite Negative Normal (applies Nitrite [facility] [Mass/volume] in to non-numeric Health S ystem Unspecified specimen results) Leukocyte esterase Trace Abnormal (applies Leukocyte Est erase [facility] [Units/volume] in to non-numeric Concentration Hea lth System Urine results) Leukocytes 3 {/HPF} Normal (applies White Blood Cells Thom alissa [#/volume] in to non-numeric Health Syst em Unspecified specimen results) by Automated count RedBloodCells 1 {/HPF} Normal (applies Red Blood Cells [facility] to non-numeric Health System results) Epithelial cells 9 {/HPF} Normal (applies Epithelial Cells [facility] [Presence] in to non-numeric Health Syst em Unspecified specimen results) by Wet preparation Mucus RARE Normal (applies Mucus [facility] to non-numeric Health System results) Bacteria [Presence] FEW Normal (applies Bacteria [facility] in Unspecified to non-numeric Health Sys tem specimen results) UrineBlood NEG Normal (applies Urine Blood [facility] to non-numeric Health System results) ID Date Data Source [id number] 01/10/2020 01:33:25 AM EDT [facility] System Name Value Range Interpretation Description Data Sup porting Code Source(s) Document(s ) 31968-7 NEGATIVE Testing Normal (applies COVID-19.. [facility] was performed to non-numeric Health Syst em using Acevedo ID results) NOW COVID-19, an isothermal nucleic acid amplification technology for the qualitative detection of nucleic acid from the SARS-CoV-2 viral RNA in respiratory specimens. The ID NOW COVID-19 test has been approved by the Food and Drug Administration (FDA) under an Emergency Use Authorization for use by authorized laboratories. Reference Range: NEGATIVE . ID Date Data Source [id number] 01/10/2020 01:33:25 AM EDT [facility] System Name Value Range Interpretation Description Data Sup porting Code Source(s) Document(s ) EXPLANATORYN SEE NOTES Normal (applies EXPLANATORY NOTE [facility] OTE EXPLANATORY to non-numeric Health NOTE: The results) System Pap is a screening test for cervical cancer. It is not a diagnostic test and is subject to false negative and false positive results. It is most reliable when a satisfactory sample, regularly obtained, is submitted with relevant clinical findings and history, and when the Pap result is evaluated along with historic and current clinical information. HPVmRNAE6/E7 Not Detected Normal (applies HPV mRNA E6/E7 [facility] Reference to non-numeric Health Range: Not results) System DetectedThis test was performed using the APTIMA HPV Assay ([employer]This assay detects E6/E7 viral messenger RNA (mRNA) from 14high-risk HPV types (16,18,31,33 ,35,39,45,51 ,52,56,58,59 ,66,68).The analytical performance characterist ics ofthis assay have been determined by [employer]. The modification s have not beencleared or approved by the FDA. This assay hasbeen validated pursuant to the CLIA regulationsa nd is used for clinical purposes.THI S TEST WAS PERFORMED AT:[facility] [id number] Mary Carmen DIAZ Date and Time - 10/29/2019 12:27 SOURCE.. None given Normal (applies SOURCE.. [facility] to non-numeric Health results) System LMP.. None given Normal (applies LMP.. [facility] to non-numeric Health results) System ReportStatus DNR Normal (applies Report Status [facility] to non-numeric Health results) System CLINICALINFO None given Normal (applies CLINICAL [facility] RMATION. 23 to non-numeric INFORMATION. Health WKS results) System PRE.PAP None given Normal (applies PRE.PAP [facility] to non-numeric Health results) System PREV.BX None given Normal (applies PREV.BX [facility] to non-numeric Health results) System STATEMENTOFA SEE NOTES Normal (applies STATEMENT OF [facility] DEQUACY Satisfactory to non-numeric ADEQUACY Health for results) System evaluation.E ndocervical/ transformati on zone componentpre sent.Age and/or menstrual status not provided GENERALCATEG DNR Normal (applies GENERAL [facility] ORIZATION to non-numeric CATEGORIZATION Health results) System INTERPRETATI Negative for Normal (applies INTERPRETATION/RE [facility] ON/RESULT1 intraepithel to non-numeric SULT 1 Health ial lesion results) System or malignancy. INTERPRETATI DNR Normal (applies INTERPRETATION/RE [facility] ON/RESULT2 to non-numeric SULT 2 Health results) System COMMENTCYTO DNR Normal (applies COMMENT CYTO [facility] to non-numeric Health results) System CYTOTECHNOLO SEE NOTES Normal (applies STEAMTABLE WORKER [facility] GIST SDC, to non-numeric Health CT(ASCP)CT results) System screening location: [place] [address] REVIEWCYTOTE DNR Normal (applies REVIEW [facility] CHNOLOGIST to non-numeric STEAMTABLE WORKER Health results) System PATHOLOGIST. DNR Normal (applies PATHOLOGIST. [facility] to non-numeric Health results) System ID Date Data Source [id number] 01/10/2020 01:33:25 AM EDT [facility] Name Value Range Interpretation Description Data Sup porting Code Source(s) Document(s ) C.Trach NOT DETECTED Normal (applies C. [facility] omatisA Reference Range: to non-numeric [place] mp NOT DETECTED results) Amp System N.Gonor NOT DETECTED Normal (applies N. Gonorrhea [facility] rheabyL Reference Range: to non-numeric by LCR Health CR NOT DETECTED results) System (Always SEE NOTES The Normal (applies (Always [facility] Message analytical to non-numeric Message) Health ) performance results) System characteristics of thisassay, when used to test SurePath(TM) specimens have beendetermined by [employer]. The modifications havenot been cleared or approved by the FDA. This assay hasbeen validated pursuant to the CLIA regulations and isused for clinical purposes.For additional information, please refer [email or web address] [email or web address] .Easiest Credit Card To Get Approved For/faq/[email or web address](Th is link is being provided for information/educat ional purposes only.)THIS TEST WAS PERFORMED AT[place] [place] [id number] KANEMDReported Date and Time - 10/27/2019 01:02 ID Date Data Source [id number] 01/10/2020 01:33:25 AM EDT [facility] Name Value Range Interpretation Description Data Sup porting Code Source(s) Document(s ) Deprecated NO GROWTH Aerobic [facility] Bacteria Culture, Urine Health System identified in Urine by Aerobe culture ID Date Data Source [id number] 01/10/2020 01:33:25 AM EDT [facility] Name Value Range Interpretation Description Data Sup porting Code Source(s) Document(s ) Amphetamine Negative Normal (applies Amphetamine [facility] [Mass/volume] to non-numeric Level, Urine Health in Urine results) System Cut-off = 1000 ng/mL Barbiturates Negative Normal (applies to Barbiturate [facility] [Mass/volume] in non-numeric Screen, Urine Health System Urine by Screen results) method Cut-off = 200 ng/mL Benzodiazepines Negative Normal (applies Benzodiazepines, [facility] [Mass/volume] in to non-numeric Urine Health S ystem Urine results) Cut-off = 200 ng/mL Cocaine Negative Normal (applies Cocaine [facility] metabolites.other to non-numeric Metabolite Health System [Mass/volume] in Urine results) Screen, Urine Cut-off = 300 ng/mL Methadone Negative Normal (applies to Methadone Level, [facility] [Mass/volume] in non-numeric Urine System Urine results) Cut-off = 300 ng/mL [id number],Urine Negative Normal (applies to Opiate 300, [facility] non-numeric results) Urine System Cut-off = 300 ng/mL Phencyclidine Negative Normal (applies Phencyclidine, Urine [facility] [Mass/volume] in to non-numeric Health S ystem Urine results) Cut-off = 25 ng/mL Cannabinoid(THC) Negative Normal (applies to Cannabinoid (THC) [facility] non-numeric System results) Cutt-off = 50These results are for medic al treatment only. The positive findings are unconfirmed. Request confirmatory/quanti tative test if needed. ID Date Data Source [id number] 01/10/2020 01:33:25 AM EDT [facility] Name Value Range Interpretation Description Data Source(s ) Supporting Code Document(s ) 1HrGlucos 113 Normal (applies to 1 Hr Glucose [facility] {gm/dL} non-numeric Health System results) Normal <130Borderline 130-140A bnormal >140 ID Date Data Source [id number] 01/10/2020 01:33:25 AM EDT [facility] Name Value Range Interpretation Description Data Sup porting Code Source(s) Document(s ) Leukocytes 10.8 Normal (applies WBC Count [facility] [#/volume] in {10^3_uL to non-numeric Health Unspecified } results) System specimen by Automated count Erythrocytes 3.97 Below low normal RBC Count [facility] [#/volume] in {10^6_uL Health Blood by } System Automated count Hemoglobin 12.4 Normal (applies Hemoglobin [facility] [Mass/volume] in {gm/dL} to non-numeric Health Blood results) System Hematocrit 36.8 % Below low normal Hematocrit [facility] [Volume Health Fraction] of System Blood Erythrocyte mean 92.7 fl Normal (applies MCV [facility] corpuscular to non-numeric Health volume [Entitic results) System volume] by Automated count Erythrocyte mean 31.2 pg Above high MCH [facility] corpuscular normal Health hemoglobin System [Entitic mass] by Automated count Erythrocyte mean 33.7 Normal (applies MCHC [facility] corpuscular {gm/dL} to non-numeric Health hemoglobin results) System concentration [Mass/volume] by Automated count Erythrocyte 13.1 % Normal (applies RDW-CV [facility] distribution to non-numeric Health width [Entitic results) System volume] by Automated count Platelets 284 Normal (applies Platelet Count [facility] [#/volume] in {10^3_uL to non-numeric Health Plasma by } results) System Automated count Platelet mean 9.6 fl Normal (applies MPV [facility] volume [Entitic to non-numeric Health volume] in Blood results) System by Automated count Nucleated 0.0 Normal (applies NRBC % [facility] erythrocytes {/100_WB to non-numeric Health [#/volume] in C} results) System Body fluid NRBC# 0.00 Normal (applies NRBC # [facility] {10^3_uL to non-numeric Health } results) System Neutrophils/100 76.0 % Above high Neutrophil % [facility] leukocytes in normal Health Blood by System Automated count Neutrophils 8.2 Above high Neutrophil # [facility] [#/volume] in {10^3_uL normal Health Body fluid } System Lymphocytes 15.5 % Normal (applies Lymphocyte % [facility] [#/volume] in to non-numeric Health Blood by results) System Automated count Lymphocyte 1.7 Normal (applies Lymphocyte # [facility] percent {10^3_uL to non-numeric Health differential } results) System count (procedure) Monocytes/100 7.2 % Normal (applies Monocyte % [facility] leukocytes in to non-numeric Health Blood results) System Monocytes 0.8 Normal (applies Monocyte # [facility] [#/volume] in {10^3_uL to non-numeric Health Blood by Manual } results) System count Eosinophils/100 0.4 % Normal (applies Eosinophil % [facility] al[facility] leukocytes in to non-numeric Health Unspecified results) System specimen Eosinophils 0.04 Normal (applies Eosinophil # [facility] [#/volume] in {10^3_uL to non-numeric Health Blood } results) System Basophils/100 0.3 % Normal (applies Basophil % [facility] leukocytes in to non-numeric Health Unspecified results) System specimen by Manual count Basophils 0.03 Normal (applies Basophil # [facility] [#/volume] in {10^3_uL to non-numeric Health Blood by } results) System Automated count ImmatureGranuloc 0.06 Normal (applies Immature [facility] ytes# {10^3_uL to non-numeric Granulocytes # Health } results) System ImmatureGranuloc 0.6 % Normal (applies Immature [facility] ytes% to non-numeric Granulocytes % Health results) System ID Date Data Source [id number] 01/10/2020 01:33:25 AM EDT [facility] Name Value Range Interpretation Description Data Sup porting Code Source(s) Document(s ) Amylase 65 {IU/L} Normal (applies to Amylase, Serum [facility] [Enzymatic non-numeric Health System activity/vo results) lume] in Serum or Plasma ID Date Data Source [id number] 01/10/2020 01:33:25 AM EDT [facility] Name Value Range Interpretation Description Data Source(s ) Supporting Code Document(s ) Lipase 49 U/L Normal (applies to Lipase, Serum [facility] [Enzymatic non-numeric Health System activity/vo results) lume] in Serum or Plasma ID Date Data Source [id number] 01/10/2020 01:33:25 AM EDT [facility] Name Value Range Interpretation Description Data Sup porting Code Source(s) Document(s ) hCGQuantitative 4602.00 Above high hCG [facility] {mIU/mL} normal Quantitative Health System Negative = <5 mIU/mLAPPROXIMATE GEST. AG E APPROXIMATE HCG mIU/ML 0.2 - 1 week 5 - 50 1 - 2 w eeks 50 - 500 2 - 3 weeks 100 - 5,000 3 - 4 weeks 500 - 10,000 4 - 5 weeks 1,000 - 50,000 5 - 6 weeks 10,000 - 100,000 6 - 8 weeks 15,000 - 200,000 8 - 12 weeks 10,000 - 1 00,000HCG levels between 5-25 mIU/mL may be indicative of early . Correlati on with other clinical findings and/or repeat of HCG quantitative testing recommened. ID Date Data Source [id number] 01/10/2020 01:33:25 AM EDT [facility] Rizvi [facility]th System Name Value Range Interpretation Description Data Sup porting Code Source(s) Document(s ) Sodium 138 Normal (applies Sodium, Serum [facility] [Moles/volume] in mmol/L to non-numeric Health Serum or Plasma results) System Potassium 4.0 Normal (applies Potassium, [facility] [Mass/volume] in mmol/L to non-numeric Serum Health Serum or Plasma results) System Chloride 104 Normal (applies Chloride, [facility] [Moles/volume] in mmol/L to non-numeric Serum Health Serum or Plasma results) System Carbon dioxide, 25.7 Normal (applies CO2, Serum [facility] total mmol/L to non-numeric Health [Moles/volume] in results) System Serum or Plasma TotalProtein 6.5 Normal (applies Total Protein [facility] mg/dl to non-numeric Health results) System Glucose 85 Normal (applies Glucose, [facility] [Mass/volume] in mg/dL to non-numeric Serum Health Serum or Plasma results) System Urea nitrogen 10 Normal (applies Blood Urea [facility] [Mass/volume] in mg/dl to non-numeric Nitrogen, Health Serum or Plasma results) Serum System Creatinine 0.60 Normal (applies Creatinine, [facility] [Mass/volume] in mg/dl to non-numeric Serum Health Serum or Plasma results) System Alkaline 120 Normal (applies Alkaline [facility] phosphatase {IU/L} to non-numeric Phosphatase, Health isoenzymes results) Serum System [Enzymatic activity/volume] in Serum or Plasma by Heat stability Bilirubin.total 0.4 Normal (applies Bilirubin, [facility] [Mass/volume] in mg/dl to non-numeric Serum Total Health Serum or Plasma results) System DirectBilirubin 0.2 Normal (applies Direct [facility] mg/dl to non-numeric Bilirubin Health results) System Aspartate 45 Above high Aspartate [facility] aminotransferase {IU/L} normal Transaminase, Health [Enzymatic Serum System activity/volume] in Serum or Plasma by With P-5'-P Albumin 3.6 Normal (applies Albumin, [facility] [Mass/volume] in {gm/dl} to non-numeric Serum Health Serum or Plasma results) System I.Phosphorus 4.9 Normal (applies I. Phosphorus [facility] mg/dl to non-numeric Health results) System Alanine 25 Normal (applies Alanine [facility] aminotransferase {IU/L} to non-numeric Aminotransfer Heal th [Enzymatic results) ase, Serum System activity/volume] in Serum or Plasma Calcium 9.0 Normal (applies Calcium, [facility] [Mass/volume] in mg/dl to non-numeric Total Serum Health Serum or Plasma results) System A/GRatio 1.24 Normal (applies A/G Ratio [facility] to non-numeric Health results) System Urate 3.7 Normal (applies Uric Acid, [facility] [Mass/volume] in mg/dl to non-numeric Serum Health Serum or Plasma results) System Anion gap in Serum 8.30 Normal (applies Anion Gap [facility] al[facility] or Plasma mmol/L to non-numeric Health results) System Glomerular > 90 Normal (applies GFR [facility] filtration to non-numeric Health rate/1.73 sq results) System M.predicted [Volume Rate/Area] in Serum or Plasma by Creatinine-based formula (CKD-EPI) eGFR will provide clinicians with a more accurate indicator of renal function then the serum creatinine. The eGFR is automa tically calculated from an empiric formula (endorsed by the National Kidney Foundat ion) which incorporates age, sex, and race.Clinicians may notice surprisingly low GFR's with serum creatinine valueswithin normal range- particularly in elderly wo men (with low muscle mass).In the hospital setting, the eGFR should add an element of safety in drug dosing, in assessing the risk of IV contrast administration, and in assessing vascular risk.The NKF staging system is as follows:Normal: eGFR >90 with no kidney markersStage 1: eGFR >90 with kidney markers*Stage 2: eGFR 60- 89Stage 3: eGFR 30-59Stage 4: eGFR 15-29Stage 5: eGFR <15 (usually requir ing dialysis)*Markers include: Proteinuria, Hematuria, abnormal imaging-studies, or other blood or urine test abnormalities ID Date Data Source [id number] 01/10/2020 01:33:25 AM EDT [facility] Name Value Range Interpretation Description Data Sup porting Code Source(s) Document(s ) Reagin Ab Non-reactive Normal (applies RPR. [facility] [Presence Test to non-numeric Health ] in Methodology: results) System Serum by Nontreponemal RPR flocculation card test. ID Date Data Source [id number] 01/10/2020 01:33:25 AM EDT [facility] Name Value Range Interpretation Description Data Sup porting Code Source(s) Document(s ) Leukocytes 6.3 Normal (applies WBC Count [facility] [#/volume] in {10^3_uL to non-numeric Health Unspecified } results) System specimen by Automated count Erythrocytes 3.98 Below low normal RBC Count [facility] [#/volume] in {10^6_uL Health Blood by } System Automated count Hemoglobin 12.5 Normal (applies Hemoglobin [facility] [Mass/volume] in {gm/dL} to non-numeric Health Blood results) System Hematocrit 36.3 % Below low normal Hematocrit [facility] [Volume Health Fraction] of System Blood Erythrocyte mean 91.2 fl Normal (applies MCV [facility] corpuscular to non-numeric Health volume [Entitic results) System volume] by Automated count Erythrocyte mean 31.4 pg Above high MCH [facility] corpuscular normal Health hemoglobin System [Entitic mass] by Automated count Erythrocyte mean 34.4 Normal (applies MCHC [facility] corpuscular {gm/dL} to non-numeric Health hemoglobin results) System concentration [Mass/volume] by Automated count Erythrocyte 12.9 % Normal (applies RDW-CV [facility] distribution to non-numeric Health width [Entitic results) System volume] by Automated count Platelets 230 Normal (applies Platelet Count [facility] [#/volume] in {10^3_uL to non-numeric Health Plasma by } results) System Automated count Platelet mean 10.3 fl Normal (applies MPV [facility] volume [Entitic to non-numeric Health volume] in Blood results) System by Automated count Nucleated 0.0 Normal (applies NRBC % [facility] erythrocytes {/100_WB to non-numeric Health [#/volume] in C} results) System Body fluid NRBC# 0.00 Normal (applies NRBC # [facility] {10^3_uL to non-numeric Health } results) System Neutrophils/100 57.2 % Normal (applies Neutrophil % [facility] leukocytes in to non-numeric Health Blood by results) System Automated count Neutrophils 3.6 Normal (applies Neutrophil # [facility] [#/volume] in {10^3_uL to non-numeric Health Body fluid } results) System Lymphocytes 30.4 % Normal (applies Lymphocyte % [facility] [#/volume] in to non-numeric Health Blood by results) System Automated count Lymphocyte 1.9 Normal (applies Lymphocyte # [facility] percent {10^3_uL to non-numeric Health differential } results) System count (procedure) Monocytes/100 11.0 % Above high Monocyte % [facility] leukocytes in normal Health Blood System Monocytes 0.7 Normal (applies Monocyte # [facility] [#/volume] in {10^3_uL to non-numeric Health Blood by Manual } results) System count Eosinophils/100 0.6 % Normal (applies Eosinophil % [facility] leukocytes in to non-numeric Health Unspecified results) System specimen Eosinophils 0.04 Normal (applies Eosinophil # [facility] [#/volume] in {10^3_uL to non-numeric Health Blood } results) System Basophils/100 0.5 % Normal (applies Basophil % [facility] leukocytes in to non-numeric Health Unspecified results) System specimen by Manual count Basophils 0.03 Normal (applies Basophil # [facility] [#/volume] in {10^3_uL to non-numeric Health Blood by } results) System Automated count ImmatureGranuloc 0.02 Normal (applies Immature [facility] ytes# {10^3_uL to non-numeric Granulocytes # Health } results) System ImmatureGranuloc 0.3 % Normal (applies Immature [facility] ytes% to non-numeric Granulocytes % Health results) System ID Date Data Source [id number] 01/10/2020 01:33:25 AM EDT [facility] Name Value Range Interpretation Description Data Sup porting Code Source(s) Document(s ) Triglyceride 324 Above high normal Triglycerides, [facility] [Mass/volume] mg/dl Serum Health in Serum or System Plasma Optimal = < 100 mg/dLBoderline High = 15 0 - 199 mg/dLHigh = 200 - 499 mg/dLVery High = > 500 mg/dL Cholesterol 240 mg/dl Above high Cholesterol, Serum [facility] [Mass/volume] in normal System Serum or Plasma <200 mg/qa=[id number] mg/dl=border line>240 mg/dl=elevated Cholesterol in HDL 49.0 mg/dL Normal (applies HDL Cholestero l, [facility] [Mass/volume] in to non-numeric Serum Health S ystem Serum or Plasma results) Cholesterol in LDL 126.2 mg/dL Normal (applies Low Density [facility] [Mass/volume] in to non-numeric Lipoprotein, Healt h System Serum or Plasma results) Calculated OPTIMAL: LESS THAN 100 mg/dLNEAR OPTIMAL : 100 - 129 mg/dLBODERLINE HIGH: 130 - 150 mg/dL Cholesterol in VLDL 64.8 Normal (applies to VLDL, Serum [facility] [Mass/volume] in Serum non-numeric results) System or Plasma CHDRisk 4.90 Above high normal CHD Risk [facility] Lowest <2.9Low 3.0 - 3.6Moderate 3 .7 - 4.6High 4.7 - 5.6Highest >=5.7 ID Date Data Source [id number] 01/10/2020 01:33:25 AM EDT [facility] Name Value Range Interpretation Description Data Sup porting Code Source(s) Document(s ) Sodium 136 Normal (applies Sodium, Serum [facility] [Moles/volume] in mmol/L to non-numeric Health Serum or Plasma results) System Potassium 3.8 Normal (applies Potassium, [facility] [Mass/volume] in mmol/L to non-numeric Serum Health Serum or Plasma results) System Chloride 106 Normal (applies Chloride, [facility] [Moles/volume] in mmol/L to non-numeric Serum Health Serum or Plasma results) System Carbon dioxide, 20.7 Below low normal CO2, Serum [facility] total mmol/L [facility] [Moles/volume] in System Serum or Plasma TotalProtein 6.0 Below low normal Total Protein [facility] mg/dl [facility] Glucose 79 Normal (applies Glucose, [facility] [Mass/volume] in mg/dL to non-numeric Serum Health Serum or Plasma results) System Urea nitrogen 7 mg/dl Normal (applies Blood Urea [facility] [Mass/volume] in to non-numeric Nitrogen, Health Serum or Plasma results) Serum System Creatinine 0.66 Normal (applies Creatinine, [facility] [Mass/volume] in mg/dl to non-numeric Serum Health Serum or Plasma results) System Alkaline 292 Above high Alkaline [facility] phosphatase {IU/L} normal Phosphatase, Health isoenzymes Serum System [Enzymatic activity/volume] in Serum or Plasma by Heat stability Bilirubin.total 0.8 Normal (applies Bilirubin, [facility] [Mass/volume] in mg/dl to non-numeric Serum Total Health Serum or Plasma results) System DirectBilirubin 0.3 Normal (applies Direct [facility] mg/dl to non-numeric Bilirubin Health results) System Aspartate 59 Above high Aspartate [facility] aminotransferase {IU/L} normal Transaminase, Health [Enzymatic Serum System activity/volume] in Serum or Plasma by With P-5'-P Albumin 3.4 Normal (applies Albumin, [facility] [Mass/volume] in {gm/dl} to non-numeric Serum Health Serum or Plasma results) System I.Phosphorus 3.1 Normal (applies I. Phosphorus [facility] mg/dl to non-numeric Health results) System Alanine 82 Above high Alanine [facility] aminotransferase {IU/L} normal Aminotransfer Health [Enzymatic ase, Serum System activity/volume] in Serum or Plasma Calcium 8.4 Normal (applies Calcium, [facility] [Mass/volume] in mg/dl to non-numeric Total Serum [facility] Serum or Plasma results) System A/GRatio 1.31 Normal (applies A/G Ratio [facility] to non-numeric Health results) System Urate 4.6 Normal (applies Uric Acid, [facility] [Mass/volume] in mg/dl to non-numeric Serum Health Serum or Plasma results) System Anion gap in Serum 9.30 Normal (applies Anion Gap Thom alissa or Plasma mmol/L to non-numeric Health results) System Glomerular > 90 Normal (applies GFR [facility] filtration to non-numeric Health rate/1.73 sq results) System M.predicted [Volume Rate/Area] in Serum or Plasma by Creatinine-based formula (CKD-EPI) eGFR will provide clinicians with a more accurate indicator of renal function then the serum creatinine. The eGFR is automa tically calculated from an empiric formula (endorsed by the National Kidney Foundat ion) which incorporates age, sex, and race.Clinicians may notice surprisingly low GFR's with serum creatinine valueswithin normal range- particularly in elderly wo men (with low muscle mass).In the hospital setting, the eGFR should add an element of safety in drug dosing, in assessing the risk of IV contrast administration, and in assessing vascular risk.The NKF staging system is as follows:Normal: eGFR >90 with no kidney markersStage 1: eGFR >90 with kidney markers*Stage 2: eGFR 60- 89Stage 3: eGFR 30-59Stage 4: eGFR 15-29Stage 5: eGFR <15 (usually requir ing dialysis)*Markers include: Proteinuria, Hematuria, abnormal imaging-studies, or other blood or urine test abnormalities ID Date Data Source [id number] 01/10/2020 01:33:25 AM EDT [facility] System Name Value Range Interpretation Description Data Sup porting Code Source(s) Document(s ) Human NONREACTIVE The Normal (applies HIV test, [facility] HIV to non-numeric Routine Health cy virus 4th generation results) (antigen and System antibody titer HIV-1/2 antibody measurement Antigen/Antibod testing) (procedure) y combination is a chemiluminescen t Microparticle immunoassay(CMI A) for the simultaneous qualitative detection of HIV p24 antigen and HIV-1 and HIV-2 antibodies. The performance of this assay has not been clinically validated on patients less than 2 years old. Reference Range: NONREACTIVE . ID Date Data Source [id number] 01/10/2020 01:33:25 AM EDT [facility] Name Value Range Interpretation Description Data Sup porting Code Source(s) Document(s ) Erythrocytes 4.27 Normal (applies RBC Count [facility] [#/volume] in {10^6_uL to non-numeric Health Blood by } results) System Automated count Leukocytes 8.8 Normal (applies WBC Count [facility] [#/volume] in {10^3_uL to non-numeric Health Unspecified } results) System specimen by Automated count Hemoglobin 12.7 Normal (applies Hemoglobin [facility] [Mass/volume] in {gm/dL} to non-numeric Health Blood results) System Hematocrit 37.2 % Normal (applies Hematocrit [facility] [Volume to non-numeric Health Fraction] of results) System Blood Erythrocyte mean 87.1 fl Normal (applies MCV [facility] corpuscular to non-numeric Health volume [Entitic results) System volume] by Automated count Erythrocyte mean 29.7 pg Normal (applies MCH [facility] corpuscular to non-numeric Health hemoglobin results) System [Entitic mass] by Automated count Erythrocyte mean 34.1 Normal (applies MCHC [facility] corpuscular {gm/dL} to non-numeric Health hemoglobin results) System concentration [Mass/volume] by Automated count Platelet mean 10.0 fl Normal (applies MPV [facility] volume [Entitic to non-numeric Health volume] in Blood results) System by Automated count Erythrocyte 12.0 % Normal (applies RDW-CV [facility] distribution to non-numeric Health width [Entitic results) System volume] by Automated count Platelets 248 Normal (applies Platelet Count [facility] [#/volume] in {10^3_uL to non-numeric Health Plasma by } results) System Automated count Nucleated 0.0 Normal (applies NRBC % [facility] erythrocytes {/100_WB to non-numeric Health [#/volume] in C} results) System Body fluid Neutrophils/100 69.6 % Normal (applies Neutrophil % Thom alissa leukocytes in to non-numeric Health Blood by results) System Automated count NRBC# 0.00 Normal (applies NRBC # [facility] {10^3_uL to non-numeric Health } results) System Lymphocytes 22.6 % Normal (applies Lymphocyte % [facility] [#/volume] in to non-numeric Health Blood by results) System Automated count Neutrophils 6.1 Normal (applies Neutrophil # [facility] [#/volume] in {10^3_uL to non-numeric Health Body fluid } results) System Monocytes/100 6.4 % Normal (applies Monocyte % [facility] leukocytes in to non-numeric Health Blood results) System Lymphocyte 2.0 Normal (applies Lymphocyte # [facility] percent {10^3_uL to non-numeric Health differential } results) System count (procedure) Monocytes 0.6 Normal (applies Monocyte # [facility] [#/volume] in {10^3_uL to non-numeric Health Blood by Manual } results) System count Eosinophils/100 0.7 % Normal (applies Eosinophil % Thom alissa leukocytes in to non-numeric Health Unspecified results) System specimen Basophils/100 0.5 % Normal (applies Basophil % [facility] leukocytes in to non-numeric Health Unspecified results) System specimen by Manual count Eosinophils 0.06 Normal (applies Eosinophil # [facility] [#/volume] in {10^3_uL to non-numeric Health Blood } results) System ImmatureGranuloc 0.02 Normal (applies Immature [facility] ytes# {10^3_uL to non-numeric Granulocytes # Health } results) System Basophils 0.04 Normal (applies Basophil # [facility] [#/volume] in {10^3_uL to non-numeric Health Blood by } results) System Automated count ImmatureGranuloc 0.2 % Normal (applies Immature [facility] ytes% to non-numeric Granulocytes % Health results) System ID Date Data Source [id number] 01/10/2020 01:33:25 AM EDT [facility] Name Value Range Interpretation Description Data Sup porting Code Source(s) Document(s ) Thyrotropin 1.158 Normal (applies Thyroid [facility] [Mass/volume] {mIU/mL} to non-numeric Stimulating Health Sy stem in Serum or results) Hormone, Serum Plasma ID Date Data Source [id number] 01/10/2020 01:33:25 AM EDT [facility] Name Value Range Interpretation Description Data Sup porting Code Source(s) Document(s ) Sodium 135 Normal (applies Sodium, Serum [facility] [Moles/volume] in mmol/L to non-numeric Health Serum or Plasma results) System Potassium 3.8 Normal (applies Potassium, [facility] [Mass/volume] in mmol/L to non-numeric Serum Health Serum or Plasma results) System Chloride 103 Normal (applies Chloride, [facility] [Moles/volume] in mmol/L to non-numeric Serum Health Serum or Plasma results) System TotalProtein 6.7 Normal (applies Total Protein [facility] mg/dl to non-numeric Health results) System Carbon dioxide, 24.4 Normal (applies CO2, Serum [facility] total mmol/L to non-numeric Health [Moles/volume] in results) System Serum or Plasma Urea nitrogen 9 mg/dl Normal (applies Blood Urea [facility] [Mass/volume] in to non-numeric Nitrogen, Health Serum or Plasma results) Serum System Creatinine 0.60 Normal (applies Creatinine, [facility] [Mass/volume] in mg/dl to non-numeric Serum Health Serum or Plasma results) System Glucose 86 Normal (applies Glucose, [facility] [Mass/volume] in mg/dL to non-numeric Serum Health Serum or Plasma results) System Alkaline 57 Normal (applies Alkaline [facility] phosphatase {IU/L} to non-numeric Phosphatase, Health isoenzymes results) Serum System [Enzymatic activity/volume] in Serum or Plasma by Heat stability Bilirubin.total 0.3 Normal (applies Bilirubin, [facility] [Mass/volume] in mg/dl to non-numeric Serum Total Health Serum or Plasma results) System DirectBilirubin 0.1 Normal (applies Direct [facility] mg/dl to non-numeric Bilirubin Health results) System Aspartate 22 Normal (applies Aspartate [facility] aminotransferase {IU/L} to non-numeric Transaminase, Heal th [Enzymatic results) Serum System activity/volume] in Serum or Plasma by With P-5'-P I.Phosphorus 4.2 Normal (applies I. Phosphorus [facility] mg/dl to non-numeric Health results) System Albumin 4.2 Normal (applies Albumin, [facility] [Mass/volume] in {gm/dl} to non-numeric Serum Health Serum or Plasma results) System Alanine 22 Normal (applies Alanine [facility] aminotransferase {IU/L} to non-numeric Aminotransfer Heal th [Enzymatic results) ase, Serum System activity/volume] in Serum or Plasma A/GRatio 1.68 Normal (applies A/G Ratio [facility] to non-numeric Health results) System Calcium 9.3 Normal (applies Calcium, [facility] [Mass/volume] in mg/dl to non-numeric Total Serum Health Serum or Plasma results) System Anion gap in Serum 7.60 Normal (applies Anion Gap Thom alissa or Plasma mmol/L to non-numeric Health results) System Urate 3.5 Normal (applies Uric Acid, [facility] [Mass/volume] in mg/dl to non-numeric Serum Health Serum or Plasma results) System Glomerular > 90 Normal (applies GFR [facility] filtration to non-numeric Health rate/1.73 sq results) System M.predicted [Volume Rate/Area] in Serum or Plasma by Creatinine-based formula (CKD-EPI) eGFR will provide clinicians with a more accurate indicator of renal function then the serum creatinine. The eGFR is automa tically calculated from an empiric formula (endorsed by the National Kidney Foundat ion) which incorporates age, sex, and race.Clinicians may notice surprisingly low GFR's with serum creatinine valueswithin normal range- particularly in elderly wo men (with low muscle mass).In the hospital setting, the eGFR should add an element of safety in drug dosing, in assessing the risk of IV contrast administration, and in assessing vascular risk.The NKF staging system is as follows:Normal: eGFR >90 with no kidney markersStage 1: eGFR >90 with kidney markers*Stage 2: eGFR 60- 89Stage 3: eGFR 30-59Stage 4: eGFR 15-29Stage 5: eGFR <15 (usually requir ing dialysis)*Markers include: Proteinuria, Hematuria, abnormal imaging-studies, or other blood or urine test abnormalities ID Date Data Source [id number] 01/10/2020 01:33:25 AM EDT [facility] System Name Value Range Interpretation Description Data Sup porting Code Source(s) Document(s ) Triglyceride 129 Normal (applies Triglycerides, [facility] [Mass/volume] mg/dl to non-numeric Serum Health in Serum or results) System Plasma Optimal = < 100 mg/dLBoderline High = 15 0 - 199 mg/dLHigh = 200 - 499 mg/dLVery High = > 500 mg/dL Cholesterol in HDL 62.0 mg/dL Above high HDL Cholesterol, [facility] [Mass/volume] in normal Serum System Serum or Plasma Cholesterol 152 mg/dl Normal Cholesterol, Serum [facility] [Mass/volume] in (applies to System Serum or Plasma non-numeric results) <200 mg/sh=[id number] mg/dl=border line>240 mg/dl=elevated CHDRisk 2.45 Normal (applies to non-numeric CHD Risk [facility] results) Lowest <2.9Low 3.0 - 3.6Moderate 3 .7 - 4.6High 4.7 - 5.6Highest >=5.7 Cholesterol in VLDL 25.8 Normal (applies to VLDL, Serum [facility] [Mass/volume] in non-numeric Health Syst em Serum or Plasma results) Cholesterol in LDL 64.2 mg/dL Normal (applies to Low Density [facility] [Mass/volume] in non-numeric Lipoprotein, Health S ystem Serum or Plasma results) Calculated OPTIMAL: LESS THAN 100 mg/dLNEAR OPTIMAL : 100 - 129 mg/dLBODERLINE HIGH: 130 - 150 mg/dL ID Date Data Source [id number] 01/10/2020 01:33:25 AM EDT [facility] Name Value Range Interpretation Description Data Sup porting Code Source(s) Document(s ) Method. see noteThe Normal (applies Method. [facility] mutations are to non-numeric Health detected by results) System multiplex-meredith ymerasechain reaction (PCR) amplification of specific CFgene regions, followed by nucleotide sequence analysison a massively parallel sequencing platform. Althoughrare, false positive or false negative results mayoccur. All results should be interpreted in the contextof clinical findings, relevant history, and otherlaborato ry data. Ethinicity N/P Normal (applies Ethinicity [facility] to non-numeric Health results) System CFCarrierScre see Normal (applies CF Carrier [facility] en noteNEGATIVE, to non-numeric Screen Health NONE OF THE results) System MUTATIONS LISTEDBELOW WERE DETECTED Interpretatio see noteThis Normal (applies Interpretation [facility] n result does to non-numeric Health not rule out results) System the presence of amutation or a diagnosis of cystic fibrosis disease(CF). The risk for mutations that cause CF otherthan the ones tested depends greatly on familyhistory , clinical presentation, and ethnicity.Romina nce of Having a CF MutationEthni c Group Detection Before After NegativeRate Test ResultAshkena zi Congregation 94% 1 in 24 1 in 400Non-Hispan ic 88% 1 in 1 in 208CaucasianH ispanic-Ameri can 72% 1 in 46 1 in 164African-Am erican 65% 1 in 65 1 in 186Asian-Amer ican 49% 1 in 94 1 in 184Other insufficient data available Reviewer SEE TEXT see Normal (applies Reviewer Monico noteJuansinatha to non-numeric Health n results) System Vonnie, Ph.D.,[facility] MED[facility] CENTERJenny anneliese, Molecular GeneticsHealt care providers, please contact your local [employer] [facility] counselor or call [employer]( [phone]) for assistance with interpretatio n ofthese results.The analytical performance characteristi cs of thisassay have [place] The modifications have not been cleared or approved by the FDA. Thisassay has been validated pursuant to the Jayne ns and is used for clinical purposes.For additional information, please refer [email or web address] [email or web address] [email or web address] (This link is being provided for informational /educational purposes only.)This test was performed at:[facility] [address] [id number] Performed at:[facility], [address] [place] [id number] Meneses M.D., Ph.D. Mutations/Meredith SEE TEXT see Normal (applies Mutations/Polym [facility] ymorphisms [id number] to non-numeric orphisms Health (c.254G>A) results) System R334W (c.1000C>T)39 4delTT (c.262delTT) R347H (c.1040G>A)R1 17H (c.350G>A) R347P (c.1040G>C)62 1+1 G>T (c.489+1G>T) A455E (c.1364C>A)71 1+1 G>T (c.579+1G>T) 1507del (c.1519delATC )1078delT (c.948delT) T314eft (c.1521delCTT )V520F (c.1558G>T) R553X (c.1657C>T)17 17-1 G>A (c.1585-1G>A) R560T (c.1679G>C)G5 42X (c.1624G>T) 1898+1 G>A (c.1766+1G>A) S549N (c.1646G>A) 2183AA>G (c.2051delAAi nsG)S549R (c.1645A>C or c.1647T>G) 2184delA (c.2052delA)G 551D (c.1652G>A) 2789+5 G>A (c.2657+5G>A) 3120+1 G>A (c.2988+1G>A) P1008F (c.3846G>A)R1 162X (c.3484C>T) U7747Z (c.3909C>G)36 59delC (c.3528delC)3 849+10kb C>T (C.2457+94591 C>T)3876delA (c.3744delA)3 905insT (c.3773insT)T his assay detects thirty-two mutations, including thetwenty-thr ee core mutations recommended by the AmericanColle ge of Medical Genetics (ACMG) and the AmericanCongr ess of Obstetricians and Gynecologists (ACOG) forpopulation -based CF carrier screening. In additionto the ACMG/ACOG panel, this assay detects nineadditiona l mutations. While these mutations are rarein the [place] population, the scientific and medicallitera ture indicates that these mutations are notbenign polymorphisms . The status of the intron 9(formerly intron 8) polyT tract is reported onlywhen the R117H mutation is detected. ID Date Data Source [id number] 01/10/2020 01:33:25 AM EDT [facility] Name Value Range Interpretation Description Data Sup porting Code Source(s) Document(s ) Type O Normal (applies Type [facility] to non-numeric Health results) System AntibodyScreen Negative Normal (applies Antibody [facility] to non-numeric Screen Health results) System new pt D Ab [Titer] in Serum Positive Normal (applies to Rh [facility] or Plasma non-numeric results) System ID Date Data Source [id number] 01/09/2020 02:19:00 PM EDT [facility] INDICATION: GROWTH;EXAMINATION: Ul trasound US Biophysical Profile W/O NonstTECHNIQUE: Transabdominal pelvic ul trasound was performed.COMPARISON:None. FINDINGS:T here is a single intrauterinegestation.Biomet rics indicate an age of 35 weeks 2 days.Estimated weight 2519 g, (5 l bs. 9 oz.).34%There is a cephalic presentation.GONZÁLEZ 02/11/2020.The placenta is posterior. heart rate 152bpm.MANISH is 19.2.Biometrics 11/09.IMPRESSION:Single li ve intrauterine withgestational age 35 weeks2 days.Biometrics 11/09.Electronic ally Signed:Jorge, at 14:54 EDTTel , Service support ,[phone] Name Value Range Interpretation Code Description Data Shana rce(s) Supporting Document(s ) ID Date Data Source [id number] 11/08/2019 09:09:00 PM EDT [facility] Ultrasound abdomen - Right Upper Quadran tCLINICAL INDICATION: Female, 29 years old. Cholelithiasis. Pain. Right upper quadr ant abdominal pain.TECHNIQUE: Multiple transcutaneous sonographic images ofther ight upper quadrant abdomen were obtained.FINDINGS: No prior studies were submitted for directcomparison.The visualized liver demonstrates mild diffu se increasedechogenicity, which may be secondaryto mild fatty infiltrationversu s hepatocellular disease. The hepatic size and contourappears to be withinnormal li mits. There is no mass-effect onthe hepatic and portal veins noted. There is no heide denceofintrahepatic biliary ductal dilatation. The common duct is notdilat ed, measuring 0.5 cm. The gallbladderdemonstratesmultiple shadowin g calculi, without evidence of gallbladder wallthickening or pericholecysticfluid. There is no evidence ofsonographic Maloney''s sign elicited on this examination. Thep ancreas is notvisualized on this examination secondary toobscuration by overlying bow el gas.The right kidney .5 cm in length. There is nodefinite renal calcu ramon or hydronephrosis seen.The visualized abdominalaorta and IVC appear grosslyunr emarkable.IMPRESSION:Mild diffuse increased echogenicity ofthe hepatic parenchyma,wh ich may be secondary to mild fatty infiltration versushepatocellular diseas e.Recommend correlation with liverfunction tests.Cholelithiasis, without sonographi c evidence ofcholecystitis.Common duct within normal limits.No definite sonographic ev idence of right-sided renalcalculusor hydronephrosis.Nonvisualization of the p ancreas secondary to obscuration byoverlyingbowel gas.Electronically Sign ed:Jerzy Tran, at 22:07 EDTTel , Servicesupport [phone], [phone] Name Value Range Interpretation Code Description Data Shana rce(s) Supporting Document(s ) ID Date Data Source [id number] 10/30/2019 03:08:00 PM EDT [facility] STUDY: X-RAY CHESTREASON FOR EXAM: Laura tapia, 29 years old. with positiveppd;TECHNIQUE: Frontal viewCOMPARISON:None. FINDINGS:Frontal view of the chest demonstrates nofocal infiltrate or effusion. Heart size and mediastinum are within normal limits. Soft tissues and b onystructures are unremarkable.IMPRESSION: No focal infiltrate.Electronically Signed:Keyla Middleton, at 15:37 EDTTel , Service support -[phone] Name Value Range Interpretation Code Description Data [facility] rce(s) Supporting Document(s ) ID Date Data Source [id number] 10/21/2019 07:55:00 PM EDT [facility] STUDY: SECOND AND THIRD TRIMESTER OBST ETRICAL ULTRASOUNDREASON FOR EXAM: Female, 29 years old abd pain;Comparison: October 12, 2019Second trimester ultrasound.There is a single intrauterinepregnancy in cephal icpresentation.Placenta is posterior without previa.Amniotic fluid volume isnormal.Fe catherine heart motion is detected at 144 beats/min.Biparietal diameter 5.88 cmcorresponding to 24 weeks0 days.Head circumference 21.35 cm correspon ding to 23 [id number].Abdomen circumference 18.84 cm corresponding to 23 weeks 4 day s.Femur length4.14 cm corresponding to 23weeks 3 days.Composite gestational age is 23 weeks 4 days.Sonographic GONZÁLEZ is02/13/2020.Estimated weight 605 grams.Anatomy scan was not performed.IMPRESSION: Singleintrauterine in cephalicpresentation with estimated age 23 weeks 4 days.Electronic allySigned:Boone Pina, at 20:33 EDTTel , Service support ,[phone] Name Value Range Interpretation Code Description Data [facility] rce(s) Supporting Document(s ) ID Date Data Source [id number] 10/21/2019 08:11:00 PM EDT [facility] Name Value Range Interpretation Code Description Data [facility](s) Supporting Document(s ) COVID-19.. [facility] This lab was ordered by [facility] and reported by [facility]. ID Date Data Source [id number] 10/12/2019 02:22:00 PM EDT [facility] INDICATION: ;EXAMINATION: Ultra soundTECHNIQUE: Transabdominal pelvic ultrasound was performed.COMPARISON:None. FINDINGS:I NTRAUTERINE GESTATION(s):Single.ESTIMATED GESTATIONA L AGE: 22 weeks 6 daysESTIMATED DUE DATE (GONZÁLEZ): 02/09/2020This size isconsistent with yahir es. HEART MOTION is 153 bpm.ESTIMATED WEIGHT: 526 g , 1 lb. 3 oz.,47%. SC ESENTATION: CephalicPLACENTA: PosteriorVisualized anatomyincludes:Normal intracranial cont entsFetal spineNose and lipsDiaphragmStomachKidneys,left renal p aurora 2 mmBladderFetal cord insertionThree-vessel CORDextremitiesFour-chamber viewof the h eartanatomyIMPRESSION:Single live intrauterine of 22 weeks 6days.Electronical ly Signed:Say Darrion, at 15:18 EDTTel , Servicesupport [phone], [phone] Name Value Range Interpretation Code Description Data Shana rce(s) Supporting Document(s ) Procedure Vital Signs ID Date Data Source [id number] Name Value Range Interpretation Code Description Data Source(s) Body weight 67.58 kg 67.58 kg [facility] Body height 152.[address] [facility] Body temperature 96.6 [degF] 0 - 200 Below low normal 96.6 [degF] [facility] Body temperature 35.8 Iz[place] 0 - 99.9 Below low normal 35.8 [place] [facility] Diastolic blood 63 mm[Hg] 0 - 999 Below low normal 63 mm[Hg] [facility] Systolic blood 100 mm[Hg] 0 - 999 Below low normal 100 mm[Hg] [facility] pressure [facility] Heart rate 76 0 - 999 Normal (applies to 76 [facility] non-numeric results) [facility] Body surface area 1.6 m2 1.6 m2 [facility] m formula Body mass index 29 kg/m2 29 kg/m2 [facility] (BMI) [Ratio] [facility] Body surface area 1.6 m2 1.6 m2 [facility] formula Body mass index 29.2 kg/m2 29.2 kg/m2 [facility] (BMI) [Ratio] [facility] Body weight 68.03 kg 68.03 kg [facility] Body height 152.[address] [facility] Body temperature 97.2 [degF] 0 - 200 Normal (applies to 97.2 [degF ] [facility] non-numeric results) [facility] Body temperature 36.2 Izabella 0 - 99.9 Below low normal 36.2 [facility] [facility] Di[facility] blood 57 mm[Hg] 0 - 999 Below low normal 57 mm[Hg] Mon [facility] pressure [facility] Systolic blood 101 mm[Hg] 0 - 999 Below low normal 101 mm[Hg] [facility] Heart rate 72 0 - 999 Normal (applies to 72 [place] non-numeric results) [facility] Body surface area 1.6 m2 1.6 m2 [facility] [facility] Derived from [place] m formula Body mass index 28.7 kg/m2 28.7 kg/m2 [facility] (BMI) [Ratio] [facility] Body weight 66.[address] [facility] Body height 152.[address] [facility] Body temperature 97.3 [degF] 0 - 200 Normal (applies to 97.3 [degF ] [facility] non-numeric results) [facility] Body temperature 36.2 Izabella 0 - 99.9 Below low normal 36.2 [place] [facility] Diastolic blood 56 mm[Hg] 0 - 999 Below low normal 56 mm[Hg] [facility] pressure [facility] Systolic blood 98 mm[Hg] 0 - 999 Below low normal 98 mm[Hg] [facility] Heart rate 71 0 - 999 Normal (applies to 71 [facility] non-numeric results) [facility] Body surface area 1.6 m2 1.6 m2 [facility] Derived from [place] m formula Body mass index 28.5 kg/m2 28.5 kg/m2 [facility] (BMI) [Ratio] [facility] Body weight 66.[address] [facility] Body height 152.[address] [facility] Body temperature 98.1 [degF] 0 - 200 Normal (applies to 98.1 [degF ] [facility] non-numeric results) [facility] Body temperature 36.7 Izabella 0 - 99.9 Normal (applies to 36.7 [place] [facility] non-numeric results) [facility] Diastolic blood 51 mm[Hg] 0 - 999 Below low normal 51 mm[Hg] [facility] Systolic blood 99 mm[Hg] 0 - 999 Below low normal 99 mm[Hg] [facility] pressure [facility] Heart rate 75 0 - 999 Normal (applies to 75 [facility] non-numeric results) [facility] Body surface area 1.6 m2 1.6 m2 [facility] formula Body mass index 29.2 kg/m2 29.2 kg/m2 [facility] (BMI) [Ratio] [facility] Body weight 65.[address] [facility] Body height 149.[address] [facility] Body temperature 98.1 [degF] 0 - 200 Normal (applies to 98.1 [degF ] [facility] non-numeric results) [facility] Body temperature 36.7 Izabella 0 - 99.9 Normal (applies to 36.7 [place] [facility] non-numeric results) [facility] Diastolic blood 50 mm[Hg] 0 - 999 Below lower panic 50 mm[Hg] [facility] Systolic blood 97 mm[Hg] 0 - 999 Below low normal 97 mm[Hg] [facility] Oxygen saturation 99 % 0 - 999 Normal (applies to 99 % [facility] in Arterial blood non-numeric results) [facility] by Pulse oximetry Respiratory rate 18 0 - 999 Above high normal 18 M [facility] Heart rate 63 0 - 999 Normal (applies to 63 [place] non-numeric results) [facility] Body weight 64.[address] [facility] Body temperature 97.6 [degF] 0 - 200 Normal (applies to 97.6 [degF ] [facility] non-numeric results) [facility] Body temperature 36.4 Izabella 0 - 99.9 Below low normal 36.4 [place] [facility] Diastolic blood 58 mm[Hg] 0 - 999 Below low normal 58 mm[Hg] [facility] Systolic blood 101 mm[Hg] 0 - 999 Below low normal 101 mm[Hg] [facility] Respiratory rate 20 0 - 999 Above high normal 20 M [facility] Heart rate 78 0 - 999 Normal (applies to 78 [place] non-numeric results) [facility] Body temperature 37 [place] 0 - 99.9 Normal (applies to 37 [place] [facility] non-numeric results) [facility] Body temperature 98.7 [degF] 0 - 200 Normal (applies to 98.7 [degF ] [facility] non-numeric results) [facility] Diastolic blood 55 mm[Hg] 0 - 999 Below low normal 55 mm[Hg] [facility] Systolic blood 97 mm[Hg] 0 - 999 Below low normal 97 mm[Hg] [facility] Oxygen saturation 100 % 0 - 999 Normal (applies to 100 % [facility] in Arterial blood non-numeric results) [facility] by Pulse oximetry Respiratory rate 16 0 - 999 Normal (applies to 16 [facility] non-numeric results) [facility] Heart rate 69 0 - 999 Normal (applies to 69 [place] non-numeric results) [facility] Body surface area 1.5 m2 1.5 m2 [facility] formula Body mass index 28.8 kg/m2 28.8 kg/m2 [facility] (BMI) [Ratio] [facility] Body weight 64.[address] [facility] Body height 149.[address] [facility] Body surface area 1.6 m2 1.6 m2 [facility] [facility] formula Body mass index 27.7 kg/m2 27.7 kg/m2 [facility] (BMI) [Ratio] [facility] Body weight 64.[address] [facility] Body height 152.[address] [facility] Body temperature 98 [degF] 0 - 200 Normal (applies to 98 [degF] [facility] non-numeric results) [facility] Body temperature 36.6 Izabella 0 - 99.9 Normal (applies to 36.6 [place] [facility] non-numeric results) [facility] Diastolic blood 57 mm[Hg] 0 - 999 Below low normal 57 mm[Hg] [facility] pressure [facility] Systolic blood 100 mm[Hg] 0 - 999 Below low normal 100 mm[Hg] [facility] Heart rate 98 0 - 999 Normal (applies to 98 [facility] non-numeric results) [facility] Patient Treatment Plan of Care Planned Activity Planned Date Details Description Data Source (s) Diphenhydramine 01/03/2020 [facility] Hydrochloride 25 MG Oral 11:58:22 AM EDT System Capsule [Benadryl] Acetaminophen 325 MG Oral 11/08/2019 [facility] Tablet 10:49:18 PM EDT System Multivitamins 10/31/2019 [facility] with Folic Acid 0.4 mg 03:31:45 PM EDT Sy stem oral tablet Multivitamins 10/29/2019 [facility] with Folic Acid 0.4 mg 01:40:36 PM EDT Sy stem oral tablet
[2020-01-11 16:54] VITALS: BMI 29.5
[2020-01-11] MEDS ORDERED: BETAMET ACET/BETAMET NA PH 30 MG/5 ML VIAL IM ONE (16:56)
--- NOTE | 2020-01-11 17:11 | HP ---
Past Medical History - Primary Care Physician PCP:: Gordon Fontana - Admission Chief Complaint: sent from clinic due to cholestasis in History Source: Patient - Past Medical History ...: 3 ...Para: 2 ...Term: 2 ...: 0 ...Spon : 0 ...Induced : 0 ...Living Children: 2 ...Multiple Gestation: 0 ...LMP: 05/07/19 ... Weeks Gestation by Dates: 35.4 ...EDC by Dates: 02/11/20 ...EDC by Sono: 02/09/20 - Past Surgical History Past Surgical History: Yes: None Hx Myomectomy: No Hx Transabdominal Cerclage: No - Smoking History Smoking history: Never smoked Have you smoked in the past 12 months: No - Alcohol/Substance Use Hx Alcohol Use: No Physical Exam - Maternity Vital Signs: Vital Signs Temperature 98.2 F 01/11/20 16:50 Pulse Rate 69 01/11/20 16:50 Respiratory Rate 18 01/11/20 16:50 Blood Pressure 108/53 L 01/11/20 16:50 O2 Sat by Pulse Oximetry (%) Constitutional: Yes: Well Nourished, No Distress - Abdominal Exam/OB Number of Fetuses: Single Presentation: Vertex Heart Rate (range): 130 Category: I - Vaginal Exam/OB Vaginal Bleeding: No - Physical Exam Edema: No Problem List - Problems (1) 35 weeks gestation of Code(s): Z3A.35 - 35 WEEKS GESTATION OF (2) Cholestasis during in third trimester Code(s): O26.613 - LIVER AND BILIARY TRACT DISORD IN , THIRD TRIMESTER; K83.1 - OBSTRUCTION OF BILE DUCT Assessment/Plan 29 year old at 35w4d with cholestasis of Bile acids 141.9, elevated LFTs 59/82 Admission for steroid course and induction of labor Quantiferon positive, CXR negative Plan Celestone monitoring Ursodiol GBS culture
[2020-01-11 18:39] LABS: BASO % 0.6 % (0-2.0); EOS % 0.5 % (0-4.5); HEMATOCRIT 36.1 % (32.4-45.2); HEMOGLOBIN 12.5 GM/dL (10.7-15.3); LYMPH % 27.3 % (8-40); MCH 31.4 pg (25.7-33.7); MCHC 34.6 g/dl (32.0-36.0); MEAN CELL VOLUME 90.8 fl (80-96); MEAN PLT VOLUME 8.8 fl (7.5-11.1); MONO % 6.5 % (3.8-10.2); NEUT % 65.1 % (42.8-82.8); PLATELET COUNT 214 K/MM3 (134-434); RBC 3.98 M/mm3 (3.60-5.2); RDW 13.3 % (11.6-15.6); WHITE BLOOD COUNT 6.8 K/mm3 (4.0-10.0)
[2020-01-11 18:45] LABS: INR 0.93 (0.83-1.09)
[2020-01-11 18:47] LABS: ACTIVATED PTT 29.2 SECONDS (25.2-36.5)
[2020-01-11 19:06] LABS: ALBUMIN 2.5 g/dl (3.4-5.0); BILIRUBIN,TOTAL 0.6 mg/dL (0.2-1); BLOOD UREA NITROGEN 6.7 mg/dL (7-18); CALCIUM 8.3 mg/dL (8.5-10.1); CREATININE 0.5 mg/dL (0.55-1.3); POTASSIUM 3.9 mmol/L (3.5-5.1); TOT PROT 6.4 g/dl (6.4-8.2)
[2020-01-11] MEDS: URSODIOL 300 MG CAPSULE PO SCH (22:00)
[2020-01-12] MEDS: URSODIOL 300 MG CAPSULE PO SCH ×2 (10:52→21:33)
[2020-01-12] MEDS ORDERED: BETAMET ACET/BETAMET NA PH 30 MG/5 ML VIAL IM ONE ×2 (13:24→17:30)
--- NOTE | 2020-01-12 13:27 | PN ---
Progress Note (short form) - Note Progress Note: 35+ weeks admitted for cholestatasis of no complaints feels FM VSS abd soft gravid NT no discharge or bleeding NST 2x/shift had BPP yesterday on ursodiol second dose of celestone today plan IOL tuesday at 36 wks
[2020-01-13] MEDS ORDERED: FLU VACCINE (FLULAVAL) PF 60 MCG/0.5 ML SYRINGE 2020-2021 IM ONE (10:00)
[2020-01-13] MEDS: URSODIOL 300 MG CAPSULE PO SCH ×2 (10:55→21:06)
--- NOTE | 2020-01-13 14:57 | PN ---
Progress Note (short form) - Note Progress Note: Patient comfortably in bed. VSS, afebrile EFM - Baseline 140/min, moderate variability. accelerations, no decelerations Reactive tracing Tocos -irritability Pelvic - deferred Plan - Late gestation with cholestasis of HD # 2 Induction tomorrow pending completion of steroids Confine management
[2020-01-14] MEDS: URSODIOL 300 MG CAPSULE PO SCH ×2 (09:51→22:00)
--- NOTE | 2020-01-14 11:48 | PN ---
Progress Note (short form) - Note Progress Note: Attending note: patient admitted few days ago for cholistasis of on Ursadiol received 2 doses of steroids now 36 weeks for induction baseline= 150/ moderate variability/ acc/ no decelerations/no contractions I/P: 36 weeks; elevated bile acids patient aware of plan; R/B/A reviewed awaiting transfer to labor room to begin induction + GBS will need antibiotics
[2020-01-14] MEDS ORDERED: DINOPROSTONE 10 MG VAGINAL SUPPOSITORY VG ONE (11:55)
[2020-01-14] MEDS ORDERED: AMPICILLIN - 2 GM in SODIUM CHLORIDE 100 ML IVPB ONE (11:55)
--- NOTE | 2020-01-14 18:36 | PN ---
Progress Note (short form) - Note Progress Note: patient transferred for induction NST reactive;cervix= ft cervidil placed
[2020-01-14] MEDS ORDERED: ELECTROLYTE-148 SOLN 1,000 ML IV SCH (18:45)
--- NOTE | 2020-01-15 06:47 | PN ---
Progress Note (short form) - Note Progress Note: Attending note: cervidil removed after 12 hours of insertion; occasional contractions, some pressure cervix= 2 cm/ 50%/ -2 station wwozndah=019/ moderate variability/ acc/ no decelerations/ irregular contractions I/P: doing well; will start Pitocin
[2020-01-15] MEDS ORDERED: OXYTOCIN 30 UNITS in 0.9% NS 30 UNIT/500 ML INFUS.BAG IVPB SCH (07:00)
[2020-01-15] MEDS ORDERED: OXYTOCIN 20 UNITS in 0.9% NS 20 UNIT/1,000 ML INFUS.BAG IV ONE (07:21)
[2020-01-15] MEDS ORDERED: AMPICILLIN SODIUM 2 GM VIAL ONE (09:44)
--- NOTE | 2020-01-15 09:58 | PN ---
Progress Note (short form) - Note Progress Note: pt. states feeling mild to mod uc's vss - af fhr: 135 cat 1 toco: uc's q 3 min ve:def a/p iup at 36 3/7 weeks admitted for cholestasis received steroid course. cont. close monitoring and Pitocin pt. interested in epidural analgesia, but not right now d/w laborist - will cover Pit and epidural Ampicillin for GBS pos.
[2020-01-15] MEDS ORDERED: AMPICILLIN - 2 GM in SODIUM CHLORIDE 100 ML IVPB ONE (10:00)
[2020-01-15] MEDS: URSODIOL 300 MG CAPSULE PO SCH ×3 (10:11→21:20)
[2020-01-15] MEDS ORDERED: PCA PUMP NR ONE (12:19)
[2020-01-15] MEDS ORDERED: FENTANYL/BUPIVACAINE/NS/PF - PCEA - 50 ML DISP.SYRIN EP ONE (12:20)
[2020-01-15] MEDS ORDERED: BUPIVACAINE HCL/PF 0.25% (2.5MG/ML) 10 ML VIAL ONE (12:33)
--- NOTE | 2020-01-15 12:37 | PN ---
Progress Note (short form) - Note Progress Note: pt. c/o stronger uc's vss - af fhr: cat 1 toco: uc's q 3 min abd: soft, gravid, nt, +uc's ve: bloody show. 4 / 60 / -2 a/p iup at 36+ wks w cholestasis iol cont pit and close monitoring recent sono: no previa epidural as per pt. request
[2020-01-15] MEDS ORDERED: NALOXONE HCL 0.4 MG/ML VIAL IVPUSH PRN (13:19)
[2020-01-15] MEDS ORDERED: FENTANYL/BUPIVACAINE/NS/PF - PCEA - 50 ML DISP.SYRIN EP SCH ×2 (13:30→13:43)
[2020-01-15] MEDS ORDERED: AMPICILLIN SODIUM 1 GM VIAL ONE (14:49)
[2020-01-15] MEDS: AMPICILLIN - 1 GM in SODIUM CHLORIDE 100 ML IVPB SCH ×2 (14:56→18:00)
--- NOTE | 2020-01-15 16:26 | PN ---
Progress Note (short form) - Note Progress Note: pt. comfortable with epidural. minimal pain/pressure vss - af fhr: cat 1 toco: uc's q 2-3 min ve: 8 / 90 / -1 arom: clear nurse said still had some bloody show, but nothing heavy or active noted at the time of this exam cont close monitoring will sign out to MD warehouse operations associate.
[2020-01-15] MEDS ORDERED: BISACODYL 10 MG SUPP.RECT RC PRN (17:49)
[2020-01-15] MEDS ORDERED: BENZOCAINE 20% 57 GM BOTTLE TP PRN (17:49)
[2020-01-15] MEDS ORDERED: WITCH HAZEL 50% (TUCKS) 40 PAD/JAR PAD TP PRN (17:49)
[2020-01-15] MEDS ORDERED: METHYLERGONOVINE MALEATE 0.2 MG/1 ML AMP IM PRN (17:49)
[2020-01-15] MEDS ORDERED: BENZOCAINE 28 GM HEMORRHOIDAL OINTMENT TP PRN (17:49)
[2020-01-15] MEDS ORDERED: OXYTOCIN 20 UNITS in 0.9% NS 20 UNIT/1,000 ML INFUS.BAG IV SCH (18:00)
[2020-01-15 18:06] LABS: CORD HCO3 22.6 mmHg (20-29); CORD pH 7.348 (7.14-7.44)
[2020-01-15 18:13] LABS: CORD BASE EXCESS -5.4 mmol/L (0-2); CORD HCO3 22.6 mmHg (20-29); CORD PCO2 53.5 mmHg (30-78); CORD pH 7.244 (7.14-7.44)
--- NOTE | 2020-01-15 18:20 | PN ---
Delivery - Delivery Vaginal Delivery: No Problems Type of Anesthesia: Epidural Episiotomy/Laceration: None EBL (cc): 200 Delivery, Single - Stages of Labor Placenta: Yes: Spontaneous - Condition of Workforce Development Assistant/Underground Conduit Installer Present: No Gender: Male Position: Right, OA - 1 Minute Total Score: 9 5 Minutes Total Score: 9 - Feeding Plan Initial Plan: Elected not to breastfeed exclusively throughout hospitalization Remarks - Remarks Remarks: live baby boy APGARS 9,9 CAN X 1 tight intact perineum placenta, membranes delivered spontaneously, complete and intact. placenta to path cord gases sent peds notified by nurse of delivery (36+ wks, GBS +)
[2020-01-15] MEDS ORDERED: IBUPROFEN 600 MG TABLET (FP) PO ONE (18:38)
[2020-01-15] MEDS ORDERED: ACETAMINOPHEN 325 MG TABLET (FP) ONE (18:38)
[2020-01-15] MEDS: IBUPROFEN 600 MG TABLET (FP) PO PRN (18:44)
[2020-01-15] MEDS: ACETAMINOPHEN 325 MG TABLET (FP) PO PRN ×2 (18:44→23:50)
[2020-01-16] MEDS: IBUPROFEN 600 MG TABLET (FP) PO PRN ×4 (05:19→21:49)
[2020-01-16] MEDS: ACETAMINOPHEN 325 MG TABLET (FP) PO PRN ×4 (05:19→21:49)
[2020-01-16 08:13] LABS: BASO % 0.1 % (0-2.0); EOS % 0.4 % (0-4.5); HEMATOCRIT 36.3 % (32.4-45.2); HEMOGLOBIN 12.4 GM/dL (10.7-15.3); MCH 31.5 pg (25.7-33.7); MCHC 34.2 g/dl (32.0-36.0); MEAN CELL VOLUME 92.1 fl (80-96); MONO % 6.6 % (3.8-10.2); NEUT % 77.9 % (42.8-82.8); PLATELET COUNT 230 K/MM3 (134-434); RBC 3.94 M/mm3 (3.60-5.2); RDW 13.3 % (11.6-15.6); WHITE BLOOD COUNT 13.5 K/mm3 (4.0-10.0)
[2020-01-16] MEDS: URSODIOL 300 MG CAPSULE PO SCH ×2 (09:38→21:49)
[2020-01-16 12:14] LABS: ALBUMIN 2.1 g/dl (3.4-5.0); BILIRUBIN,DIRECT 0.4 mg/dL (0.0-0.2); BILIRUBIN,TOTAL 0.4 mg/dL (0.2-1); BLOOD UREA NITROGEN 8.3 mg/dL (7-18); CALCIUM 8.6 mg/dL (8.5-10.1); CREATININE 0.5 mg/dL (0.55-1.3); POTASSIUM 3.7 mmol/L (3.5-5.1); TOT PROT 5.6 g/dl (6.4-8.2)
--- NOTE | 2020-01-16 20:14 | PN ---
Post Progress Note - Subjective Subjective: No complaint. Post Day: 1 Type of Delivery: Vital Signs: Vital Signs Temperature 98.1 F 01/16/20 13:29 Pulse Rate 74 01/16/20 13:29 Respiratory Rate 18 01/16/20 13:29 Blood Pressure 109/57 L 01/16/20 13:29 O2 Sat by Pulse Oximetry (%) 96 01/16/20 13:29 Breast Exam: Yes: Soft Uterus: Yes: Fundus Firm Abdomen/GI: Yes: Abdomen soft Lochia: Yes: Rubra Lochia, amount: Small Extremities: Yes: Calves non-tender Perineum: Yes: Intact - Labs Labs: CBC WBC 13.5 K/mm3 (4.0-10.0) H 01/16/20 07:48 RBC 3.94 M/mm3 (3.60-5.2) 01/16/20 07:48 Hgb 12.4 GM/dL (10.7-15.3) 01/16/20 07:48 Hct 36.3 % (32.4-45.2) 01/16/20 07:48 MCV 92.1 fl (80-96) 01/16/20 07:48 MCH 31.5 pg (25.7-33.7) 01/16/20 07:48 MCHC 34.2 g/dl (32.0-36.0) 01/16/20 07:48 RDW 13.3 % (11.6-15.6) 01/16/20 07:48 Plt Count 230 K/MM3 (134-434) 01/16/20 07:48 MPV 9.0 fl (7.5-11.1) 01/16/20 07:48 Absolute Neuts (auto) 10.5 K/mm3 (1.5-8.0) H 01/16/20 07:48 Neutrophils % 77.9 % (42.8-82.8) 01/16/20 07:48 Lymphocytes % 15.0 % (8-40) D 01/16/20 07:48 Monocytes % 6.6 % (3.8-10.2) 01/16/20 07:48 Eosinophils % 0.4 % (0-4.5) 01/16/20 07:48 Basophils % 0.1 % (0-2.0) 01/16/20 07:48 Nucleated RBC % 0 % (0-0) 01/16/20 07:48 Assessment/Plan PP day 1 cholestasis of repeat LFT in am possible discharge tomorrow
[2020-01-16] MEDS ORDERED: SENNOSIDES/DOCUSATE COMBO (SENNA PLUS) TABLET (UD) PO PRN (22:00)
[2020-01-17] MEDS: IBUPROFEN 600 MG TABLET (FP) PO PRN ×4 (01:00→14:56)
[2020-01-17] MEDS: ACETAMINOPHEN 325 MG TABLET (FP) PO PRN ×4 (01:00→14:56)
[2020-01-17 09:12] LABS: ALBUMIN 2.3 g/dl (3.4-5.0); BILIRUBIN,DIRECT 0.2 mg/dL (0.0-0.2); BILIRUBIN,TOTAL 0.3 mg/dL (0.2-1); TOT PROT 5.8 g/dl (6.4-8.2)
[2020-01-17 09:22] VITALS: BP 101/58; PULSE 89; TEMP 98.1
[2020-01-17] MEDS: URSODIOL 300 MG CAPSULE PO SCH (09:23)
--- NOTE | 2020-01-17 13:35 | DS ---
Physical Exam-PET CARE ASSISTANT Vital Signs: Vital Signs Temperature 98.1 F 01/17/20 09:21 Pulse Rate 89 01/17/20 09:21 Respiratory Rate 16 01/17/20 09:21 Blood Pressure 101/58 L 01/17/20 09:21 O2 Sat by Pulse Oximetry (%) 96 01/16/20 13:29 Constitutional: Yes: Well Nourished, No Distress Cardiovascular: Yes: WNL Respiratory: Yes: WNL Gastrointestinal: Yes: WNL Internal Exam Deferred: Yes ....Post : Yes: Uterus firm Extremities: Yes: WNL Labs: CBC, BMP 01/16/20 07:48 01/16/20 10:14 Delivery - Delivery Vaginal Delivery: No Problems Type of Anesthesia: Epidural Episiotomy/Laceration: None EBL (cc): 200 Delivery, Single - Stages of Labor Date 1st Stage Initiatied: 01/15/20 Time 1st Stage Initiated: 12:30 Date 2nd Stage Initiated: 01/15/20 Time 2nd Stage Initiated: 16:55 Date of Delivery: 01/15/20 Time of Delivery: 17:08 Time Placenta Delivered: 17:11 Placenta: Yes: Spontaneous - Condition of Infant Community Facilitator/Scraper Meat Present: No Gender: Male Weight: 2.722 kg Position: Right, OA Total Hours ROM (Hrs/Mins): 59m - 1 Minute Total Score: 9 5 Minutes Total Score: 9 - [place] Feeding Plan Initial Plan: Elected not to breastfeed exclusively throughout hospitalization Discharge Summary Problems reviewed: Yes Reason For Visit: INDUCTION OF LABOR Current Active Problems 35 weeks gestation of (Acute) Cholestasis during in third trimester (Acute) (normal spontaneous vaginal delivery) (Acute) Procedures: Principal: Hospital Course: uncomplicated cholestasis of Plan of Treatment: ursodiol, pain management, follow up in 2 weeks Condition: Good - Instructions Diet, Activity, Other Instructions: follow up in 2 weeks, call for appointment Referrals: Dustin Betancur MD [Staff Physician] - Disposition: HOME - Home Medications Comprehensive Discharge Medication List: Ambulatory Orders Vitamins (Sjr) - 1 tab PO DAILY 01/11/20
--- NOTE | 2020-01-21 16:48 | PATH ---
Surgical Pathology Report Patient Name: JUSTINA EVANS Med. Rec. #: [id number] /Age/Gender: 1990 (Age: 29) / F Account: [id number] Location: [facility] OBS/DATA STEWARD Taken: 01/15/2020 Received: 01/16/2020 Reported: 01/21/2020 Physicians: Сергей Jones M.D. Specimen(s) Received PLACENTA Clinical History , induction at 36.3 weeks, due to cholestasis Final Diagnosis PLACENTA, DELIVERY: 661 G THIRD TRIMESTER PLACENTA WITH TRIVASCULAR UMBILICAL CORD. PLACENTAL MEMBRANES WITH MECONIUM-LADEN MACROPHAGES AND FOCAL ACUTE MILD DECIDUITIS. Electronically Signed Georgie Valdes M.D. Gross Description The specimen is received fresh labeled placenta and is a 661 gram, 15 x 15 x 1.7 cm. placenta with attached membranes and umbilical cord. The attached membranes are thick, green, meconium stained, and insert marginally. The umbilical cord measures 11 cm. in length and averages 1.2 cm. in diameter. The cord inserts eccentrically, 4 cm. to the nearest margin. No true knots or strictures are identified. Cut surface of the umbilical cord reveals 3 vessels. The surface is green, meconium stained, with mild fibrin deposition and appropriate caliber vessels. The maternal surface is red-brown with focal defects. Sectioning reveals red-brown, spongy parenchyma. No lesions are identified. Gas Line Installer sections are submitted in three cassettes as follows: 1- membrane rolls and umbilical cord; 2-3- full thickness sections of placenta. MLSZ/01/18/2020 sanml/01/18/2020
== END 2020-01-17 18:30 | disposition home or self-care (01) | DRG 560 ==
LOC: JLDR 16:00 → J3W 22:00 → JLDR 01-14 16:54 → J3W 01-15 20:36
PROVIDERS: ADMIT Obstetrics & Gynecology; ATTEND Obstetrics & Gynecology
PROC: 3E0P7VZ Introduction of Hormone into Female Reproductive, Via Natural or Artificial Opening (ICD-10-PCS; 2020-01-14)
PROC: 10E0XZZ Delivery of Products of Conception, External Approach (ICD-10-PCS; principal; 2020-01-15)
PROC: 10907ZC Drainage of Amniotic Fluid, Therapeutic from Products of Conception, Via Natural or Artificial Opening (ICD-10-PCS; 2020-01-15)
DX: O26.613 Liver and biliary tract disorders in pregnancy, third trimester (principal); K83.1 Obstruction of bile duct; O60.14X0 Preterm labor third trimester with preterm delivery third trimester, not applicable or unspecified; O99.824 Streptococcus B carrier state complicating childbirth; O69.81X0 Labor and delivery complicated by cord around neck, without compression, not applicable or unspecified; Z37.0 Single live birth; Z3A.36 36 weeks gestation of pregnancy; R76.12 Nonspecific reaction to cell mediated immunity measurement of gamma interferon antigen response without active tuberculosis
CPT/HCPCS: 36415; 36600; 59409; 76819-TC; 80053; 80076; 82803; 85025; 85610; 85730; 86762; 86780; 86850; 86900; 86901; 87081; 88307-TC; 96372; C9803; Q2036; U0003